=== PATIENT | female | born 1970 | race Caucasian/White ===

== ENCOUNTER → 2019-11-24 09:17 | Outpatient (CLI) | payer OTHER, SELFPAY ==
[2017-11-11 17:44] VITALS: BMI 21.7
[2019-11-24 17:43] LABS: Hemoglobin A1c 5.5 % (4.2-6.3)
== END ==
PROVIDERS: PCP Family Medicine; Referring Provider Family Medicine; Visit Provider Family Medicine
DX: R73.02 Impaired glucose tolerance (oral) (principal)
CPT/HCPCS: 36415; 83036

== ENCOUNTER → 2023-08-15 | Outpatient (CLI) | payer OTHER, SELFPAY ==
[2023-08-15 10:14] LABS: Absolute Lymphocyte Count 1.44 X10^3/uL (0.83-4.51); Absolute Neutrophil Count 2.5 X10^3/uL (2.0-7.7); Basophil# 0.02 X10^3/uL; Basophil% 0.5 % (0-1); Eosinophil# 0.06 X10^3/uL; Eosinophils% 1.4 % (0-5); Hematocrit 42.3 % (37-47); Lymphocyte # 1.44 X10^3/ul (0.83-4.51); Lymphocyte % 32.8 % (19-41); Mean Corp Hgb Conc 33.1 g/dL (32-36); Mean Corpuscular Hgb 29.4 pg (27.0-32.0); Mean Corpuscular Volume 88.9 fL (81-99); Mean Platelet Vol. 9.6 fl (6.2-12.0); Monocyte# 0.35 X10^3/uL; NRBC Flagged by Analyzer 0 % (0-5); Neutrophil # 2.51 X10^3/uL (2.7-7.7); Neutrophil % 57.1 % (47-70); Platelet Count 246 K/mm3 (150-450); RBC Distribution Width CV 11.8 % (11.6-14.6); RBC Distribution Width SD 38.1 fl (35.1-43.9); Red Blood Count 4.76 M/mm3 (4.2-5.4); White Blood Count 4.4 K/mm3 (4.4-11.0)
[2023-08-15 11:53] LABS: ALB/GLOB Ratio 1.1 RATIO (0.9-2.4); AST(SGOT) 13 U/L (15-37); Alanine Aminotransfer ALT/SGPT 16 U/L (13-56); Albumin, Serum 3.6 g/dL (3.2-5.0); Alkaline Phosphatase 41 U/L (45-117); Anion Gap 3 (5-15); BUN 15 mg/dL (7-18); BUN/Creat Ratio 16.6 RATIO (10-20); Calcium,Total 8.9 mg/dL (8.5-10.1); Chloride 108 mmol/L (98-107); EST Glomerular Filtration Rate 69 mL/min (>60); Est Glom Filt Rate - Afr Amer 84 mL/min (>60); Globulin 3.4 g/dL (2.2-4.2); Glucose 89 mg/dL (74-106); Potassium 3.7 mmol/L (3.5-5.1); Sodium Level 140 mmol/L (136-145); Thyroid Stim Hormone (TSH) 0.57 uIU/mL (0.358-3.74)
[2023-08-16 11:26] LABS: Cholesterol 195 mg/dL (200); High Density Lipoprotein 68 mg/dL; Triglycerides 111 mg/dL; Very Low Density Lipoprotein 22 mg/dL (5-40)
== END | disposition home or self-care (01) ==
LOC: MTLAB 09:08
PROVIDERS: PCP Family Medicine; Referring Provider Family Medicine; Visit Provider Family Medicine
DX: Z00.00 Encounter for general adult medical examination without abnormal findings (principal)
CPT/HCPCS: 36415; 80053; 80061; 84443; 85025

== ENCOUNTER → 2023-08-29 | Outpatient (CLI) | payer OTHER, SELFPAY ==
--- NOTE | 2023-08-29 07:54 | CT_ITS ---
EXAM: CT CHEST, LUNG CANCER SCREENING WITHOUT INTRAVENOUS CONTRAST CLINICAL INDICATION: SCREEN TECHNIQUE: Helically acquired images were obtained of the chest without intravenous contrast using low dose (LDCT) lung cancer screening protocol. This CT exam was performed using one or more of the following dose reduction techniques: automated exposure control, adjustment of the mA and/or kV according to patient size, and/or use of iterative reconstruction technique. COMPARISON: No relevant prior studies available. FINDINGS: LUNGS AND PLEURAL SPACES: Normal. No pleural effusion or thickening. No pneumothorax. No evidence of a lung mass or suspicious pulmonary nodule. HEART: Heart is normal size. No pericardial effusion. No coronary artery calcification. MEDIASTINUM: Normal. Esophagus is unremarkable. No hiatal hernia. No mediastinal or hilar lymphadenopathy. THYROID: Normal. No thyroid nodules or calcification. BONES/JOINTS: No suspicious lytic or blastic abnormality. VASCULATURE: No aortic aneurysm. LYMPH NODES: See above. CT/Low Dose CT Lung Screening IMPRESSION: No evidence of a lung mass or suspicious pulmonary nodule. Lung-RADS score: 1 - Negative. Recommend continued annual screening with a low-dose CT (LDCT) in 12 months. Electronically Signed: Edi Smith MD at 16:15 EST ,
--- OUTSIDE RECORDS SUMMARY | 2023-08-29 07:59 | XMS RPT_ITS | CCD ---
Author Name Unknown Address [facility] [address] [place] [address] Organization [facility] Care Team Providers Care Taper And Floater Name Role Phone Shar Alejandro MD Primary Care Provider [phone] SHAR ALEJANDRO Primary Care Unavailable TARSHA HUFFMAN Referring Unavailable SHAR ALEJANDRO Primary Care Unavailable TARSHA HUFFMAN Attending Unavailable Medications Completed/Discontinued Medications Medication Drug Class(es) Dates Sig (Normalized) Sig (Original) Cranberry preparation (2 sources) Non-Standardized Food Allergenic Extract, Non-Standardized Plant Allergenic Extract CRANBERRY ORAL Take by mouth as needed (urinary symptoms). 0 Active Problems Active Problems Problem Classification Problem Date Documented Date Episodic/Chronic Immunizations and screening for infectious disease (2 sources) Patient encounter status; Translations: [Encounter for screening for human papillomavirus (HPV)] 07-11-2023 Episodic Other screening for suspected conditions (not mental disorders or infectious disease) (2 sources) Cancer cervix screening status; Translations: [Encounter for screening for malignant neoplasm of cervix] Onset: 07-29-2023 07-11-2023 Episodic Past or Other Problems Problem Classification Problem Date Documented Da te Episodic/Chronic Residual codes; unclassified (2 sources) Tobacco user; Translations: [Tobacco use] Onset: 10-08-2012 10-08-2012 Episodic Residual codes; unclassified (2 sources) Family history of diabetes mellitus; Translations: [Family history of diabetes mellitus] Onset: 10-08-2012 10-08-2012 Episodic Results Test Name Value Interpretation Reference Range Facil ity Vital Signs Date Time Vital Sign Value Performing Clinician Jenny steven 07-11-2023 10:33-0500 Body height 166 cm Tarsha Huffman HIGH FREQUENCY MILL OPERATOR.CHAIN PULLER Work Phone: [facility] 07-11-2023 10:33-0500 Body weight 64.77 kg Tarsha Huffman APRN.TARA Work Phone: [facility] 07-11-2023 10:33-0500 Diastolic blood pressure 72 mm[Hg] Tarsha Huffman APRN.TARA Work Phone: [facility] 07-11-2023 10:33-0500 Systolic blood pressure 102 mm[Hg] Tarsha Huffman HIGH FREQUENCY MILL OPERATOR.TARA Work Phone: [facility] Encounters Encounter Date Encounter Type Care Provider Facility Start: 07-30-2023 Documentation procedure Mammog shelly Coordinator [facility] Start: 07-30-2023 Letter encounter Mammography Coordinator [facility] Department Start: 07-29-2023 End: 07-29-2023 ambulatory [facility] Facility:[facility] Start: 07-11-2023 End: 07-11-2023 ambulatory [facility] Facility:[facility] Start: 07-11-2023 End: 07-11-2023 Patient encounter procedure Tarsha Huffman APRN.TARA Work Phone: OB/Gynecology Procedures Date Procedure Procedure Detail Performing Clinician Start: 10-16-2012 Lipid 1996 panel - S leroy or Plasma Tarsha Huffman APRN.CNP Work Phone: Plan of Treatment Date Care Activity Detail Author Start: 07-11-2028 HPV Testing HPV Testing [facility] Start: 07-11-2028 Pap Testing Pap Testing [facility] Start: 07-04-2028 Urine microalbumin profile DTaP,Tdap,Td Vaccine (2 - Td or Tdap) [facility] Start: 07-29-2024 Mammography Mammogram Screening [facility] Start: 07-07-2023 HPV Testing HPV Testing [facility] Start: 07-07-2023 Pap Testing Pap Testing [facility] Start: 05-03-2023 Covid-19 Vaccine ( season) Covid-19 Vaccine ( season) [facility] Start: 05-03-2023 Influenza vaccination Influenza Vaccine (#1) [facility] Start: 09-02-2022 Depression Assessment Depression Assessment [facility] Start: 10-19-2021 Shingrix Vaccine (2 of 2) Shingrix Vaccine (2 of 2) [facility] Start: 07-15-2019 Mammography Mammogram Screening [facility] Start: 10-16-2017 Lipid 1996 panel - Serum or Plasma Lipid Screening [facility] Start: 02-01-2016 Cologuard (FIT-DNA) Cologuard (FIT-DNA) [facility] Start: 02-01-2016 Colonoscopy Colonoscopy [facility] Start: 02-01-2016 Colorectal Cancer Screening Colorectal Cancer Screening [facility] Start: 02-01-[address] Colonography [facility] Start: 02-01-2016 Diabetes Screening Diabetes Screening [facility] Start: 02-01-2016 Fecal Occult Blood Fecal Occult Blood [facility] Start: 02-01-2016 Sigmoidoscopy Sigmoidoscopy [facility] Start: 1989 Hepatitis C Screening Hepatitis C Screening [facility] Start: 1989 HIV Screening HIV Screening [facility] Start: 1971 Hepatitis B Vaccine (1 of 3 - 3-dose series) Hepatitis B Vaccine (1 of 3 - 3-dose series) [facility] End: 08-09-2024 MARY ANN SCREENING [facility] SCREENING Radiology Routine Encounter for screening mammogram for breast cancer 1 Occurrences starting 07/11/2023 until 08/09/2024 [facility] Work Phone: Immunizations Immunization Date Immunization Notes Care Provider Gerald baker 08-08-2022 influenza virus vacc ine, unspecified formulation Tarsha Huffman APRN.CNP Work Phone: [facility] Payers Date Payer Category Payer Private Health Insurance PRATIK RAMIREZ OAP [id number] 2021-Present [phone] [id number] [facility] [id number] Open Access [id number] 2021 Private Health Insurance [id number] Social History Date Type Detail Facility Start: 06-01-2021 Tobacco smoking stat NHIS Ex-smoker [facility] End: 06-02-2008 History of tobacco use Current smoker [facility] End: 06-02-2008 History of tobacco use Cigarette Smoker [facility] Start: 06-01-2021 End: 07-11-2023 Cigarettes smoked current (pack per day) - Reported 0.5 [facility] Start: 06-01-2021 Tobacco use and exposure Smoke less tobacco non-user [facility] Start: 07-11-2023 Alcohol intake Current drinke r of alcohol (finding) [facility] Start: 07-11-2023 Tobacco use panel [facility] National Score (1-10 0), lower number is lower risk 36 [facility] Start: 09-17-2008 Alcohol Comment social,BUT NOT WHILE [facility] Start: 1970 Sex Assigned At Female C [facility] Start: 07-11-2023 Gender identity Identifies as female gender (finding) [facility] Start: 07-11-2023 Sexual orientation Heterosexual (cosme steward) [facility] Note 07-30-2023 Letter - Coordinator, Mammography - 07/30/2023 11:00 AM EST Note Date & Type Note Facility 07-30-2023 Miscellaneous Notes Formattin g of this note might be different from the original. July 30, 2023 PID: [id number] Sherrie Rouse [address] [place] [address] Dear Ms. Rouse, We are pleased to inform you that the results of your recent breast imaging exam on 07/29/2023 are normal. Your mammogram demonstrates that you have dense breast tissue, which could hide abnormalities. Dense breast tissue, in and of itself, is a relatively common condition. Therefore, this information is not provided to cause undue concern; rather, it is to raise your awareness and promote discussion with your health care provider regarding the presence of dense breast tissue in addition to other risk factors. Early detection of cancer is very important. We also understand recommendations regarding breast cancer screening are controversial. Please discuss with your primary care provider which strategy is best for you and whether a mammogram is right for you. Your imaging studies and report will be kept on file at [facility] as part of your permanent medical record and are available for your continuing care. Thank you for allowing us to help in meeting your health care needs. Sincerely, Dr. Isaacs Interpreting Radiologist [facility] (Normal over 40) documented in this encounter [facility] Progress note 07-29-2023 Note Date & Type Note Facility 07-29-2023 Note HNO ID: [id number] Author: Ariadne Townsend Mammo Tech Service: ? Author Type: Efficiency Analyst Type: Progress Notes Filed: 07/29/2023 3:16 PM Note Text: Radiology Service Progress Note PATIENT NAME: Sherrie Rouse DATE OF SERVICE: July 29, 2023 TIME: 2:59 PM PATIENT IDENTITY VERIFICATION COMPLETED USING TWO (2) IDENTIFIERS: Name and Date of confirmed by patient verbally. FALL SCREENING: Has the patient had 2 falls in the last year or 1 fall with injury or currently using an Ambulatory Assistive Device (Walker, Cane, Wheelchair, Crutches, etc.)? No PATIENT GENDER DATA: Female. status: : No status: NO. PATIENT RELEVANT IMPLANT DATA REVIEWED: Not Applicable RADIOLOGY DEPARTMENT: Mammography PERIPHERAL IV DATA: Not applicable SIGNED BY: Donald Hatfield July 29, 2023 2:59 PM [facility] Progress note 07-11-2023 Note Date & Type Note Facility 07-11-2023 Note HNO ID: [id number] Author: Tarsha Huffman APRN.CHAIN PULLER Service: ? Author Type: Nurse Practitioner Type: Progress Notes Filed: 07/11/2023 11:31 AM Note Text: Direct Marketing Manager offered: Patient declines. Sherrie is a 53 year old who presents for an annual gynecologic exam without complaints. Postmenopausal: irregular cycle w/ 3-4 days of flow LMP 06/2023 HRT use: No. Last Pap: 07/15/2018 normal HPV: 07/09/2018 negative History of abnormal pap: No Last mammogram: 2018 normal History of abnormal mammogram: No Sexually active: Yes Pain with intercourse: No Postcoital bleeding: No Hot flashes: some Night sweats: Yes Vaginal dryness: No OB History T4 L4 SAB0 IAB1 Ectopic0 Multiple0 Live Births5 [employer] History LMP: 05/25/2021, Having periods Age at Menarche: Age at First : Age at Menopause: [employer] History Comments: Sexual Activity: Yes; Male Contraception: Tubal Ligation PAST MEDICAL HISTORY Diagnosis Date NEGATIVE MEDICAL HISTORY PAST SURGICAL HISTORY Procedure Laterality Date DELIVERY ONLY 07/18/07,05/03/2009 for previa LIGATE FALLOPIAN TUBE 1994 Tubal ligation LIGATE FALLOPIAN TUBE 2008 Tubal ligation PAST SURGICAL HISTORY OF 09/08 TUBAL REVERSAL PAST SURGICAL HISTORY OF Left 03/2015 shoulder surgery FAMILY HISTORY Problem Relation Age of Onset other (LIVER DISEASE) Mother Hypertension Father Diabetes Father Heart Father SOCIAL HISTORY Social History Tobacco Use Smoking status: Former Packs/day: 0.50 Years: 14.00 Additional pack years: 0.00 Total pack years: 7.00 Types: Cigarettes Quit date: 06/02/2008 Years since quittin.1 Smokeless tobacco: Never Vaping Use Vaping Use: Former Substance Use Topics Alcohol use: Yes Comment: social,BUT NOT WHILE Drug use: No REVIEW OF SYSTEMS Abdomen: No abdominal pain, nausea, vomiting, diarrhea, or constipation. No bloating, early satiety, indigestion, or increased flatulence. Bladder: No dysuria, gross hematuria, urinary frequency, urinary urgency, or incontinence Breast: No breast lumps, nipple d/c, overlying skin changes, redness or skin retraction Allergies and current medication updated:Yes EXAM: LMP 05/25/2021 GENERAL: pleasant, female in no apparent distress HEENT: Normocephalic, atraumatic, mucus membranes moist, and no lesions NECK: Supple, full range of motion, no adenopathy, and thyroid normal DERMATOLOGY: Normal, without lesions, non-icteric, and non-hirsute BREAST: soft, non-tender, symmetric, no dominant mass, normal nipple-areolar complex, no lymphadenopathy, and no nipple discharge CHEST: Normal inspiratory effort ABDOMEN: soft, non-tender, and no masses PELVIC: external genitalia normal, normal Bartholin's glands, urethra, [place]'s glands, no vulvar lesions, no cervical lesions, physiologic discharge present, normal appearing perineal body and perianal region BIMANUAL: uterus normal size, shape and consistency, no adnexal masses, and non-tender RECTOVAGINAL: deferred. NEURO: alert and oriented x3,exam grossly non-focal EXTREMITIES: normal ASSESSMENT/PLAN: 1) Health maintenance: Pap done with HPV. Mammogram ordered Nutrition, exercise and routine health maintenance exams reviewed. Calcium/Vitamin D supplementation information provided. 2) Follow up one year or sooner as needed Tarsha Huffman APRN.[facility] History of Present illness Narrative 11-09-2023 NayeliTarsha mossCOLEEN.CHAIN PULLER - 07/11/2023 10:26 AM EST Note Date & Type Note Facility 07-11-2023 History of Presen t illness Narrative Direct Marketing Manager offered: Patient declines. Sherrie is a 53 year old who presents for an annual gynecologic exam without complaints. Postmenopausal: irregular cycle w/ 3-4 days of flow LMP 06/2023 HRT use: No. Last Pap: 07/15/2018 normal HPV: 07/09/2018 negative History of abnormal pap: No Last mammogram: 2017 normal History of abnormal mammogram: No Sexually active: Yes Pain with intercourse: No Postcoital bleeding: No Hot flashes: some Night sweats: Yes Vaginal dryness: No OB History T4 L4 SAB0 IAB1 Ectopic0 Multiple0 Live Births5 [employer] History LMP: 05/25/2021, Having periods Age at Menarche: Age at First : Age at Menopause: [employer] History Comments: Sexual Activity: Yes; Male Contraception: Tubal Ligation PAST MEDICAL HISTORY Diagnosis Date NEGATIVE MEDICAL HISTORY PAST SURGICAL HISTORY Procedure Laterality Date DELIVERY ONLY 07/18/07,05/03/2009 for previa LIGATE FALLOPIAN TUBE 1994 Tubal ligation LIGATE FALLOPIAN TUBE 2008 Tubal ligation PAST SURGICAL HISTORY OF 09/08 TUBAL REVERSAL PAST SURGICAL HISTORY OF Left 03/2015 shoulder surgery FAMILY HISTORY Problem Relation Age of Onset other (LIVER DISEASE) Mother Hypertension Father Diabetes Father Heart Father SOCIAL HISTORY Social History Tobacco Use Smoking status: Former Packs/day: 0.50 Years: 14.00 Additional pack years: 0.00 Total pack years: 7.00 Types: Cigarettes Quit date: 06/02/2008 Years since quittin.1 Smokeless tobacco: Never Vaping Use Vaping Use: Former Substance Use Topics Alcohol use: Yes Comment: social,BUT NOT WHILE Drug use: No REVIEW OF SYSTEMS Abdomen: No abdominal pain, nausea, vomiting, diarrhea, or constipation. No bloating, early satiety, indigestion, or increased flatulence. Bladder: No dysuria, gross hematuria, urinary frequency, urinary urgency, or incontinence Breast: No breast lumps, nipple d/c, overlying skin changes, redness or skin retraction Allergies and current medication updated:Yes EXAM: LMP 05/25/2021 GENERAL: pleasant, female in no apparent distress HEENT: Normocephalic, atraumatic, mucus membranes moist, and no lesions NECK: Supple, full range of motion, no adenopathy, and thyroid normal DERMATOLOGY: Normal, without lesions, non-icteric, and non-hirsute BREAST: soft, non-tender, symmetric, no dominant mass, normal nipple-areolar complex, no lymphadenopathy, and no nipple discharge CHEST: Normal inspiratory effort ABDOMEN: soft, non-tender, and no masses PELVIC: external genitalia normal, normal Bartholin's glands, urethra, [place]'s glands, no vulvar lesions, no cervical lesions, physiologic discharge present, normal appearing perineal body and perianal region BIMANUAL: uterus normal size, shape and consistency, no adnexal masses, and non-tender RECTOVAGINAL: deferred. NEURO: alert and oriented x3,exam grossly non-focal EXTREMITIES: normal ASSESSMENT/PLAN: 1) Health maintenance: Pap done with HPV. Mammogram ordered Nutrition, exercise and routine health maintenance exams reviewed. Calcium/Vitamin D supplementation information provided. 2) Follow up one year or sooner as needed Tarsha Huffman APRN.CNP documented in this encounter [facility] History of Past illness Narrative 09-30-2008 Note Date & Type Note Facility documented as of this encounter (statuses as of 07/11/2023) [facility] History of Past illness Narrative 09-30-2008 Note Date & Type Note Facility documented as of this encounter (statuses as of 08/01/2023) [facility] Evaluation note Note Date & Type Note Facility documented in this encounter [facility] Reason for referral (narrative) Diagnostic Procedure Only (Routine) - Authorized Note Date & Type Note Facility Referral ID Status Reason Start Date Expiration Date Visits Requested Visits Authorized [id number] Authorized Auto-Generat ed Referral 07/11/2023 08/09/2024 1 1 [facility] Summary Purpose Family History No Family History Records Found Advance Directives No Advanced Directives Records Found Additional Source Comments Source Comments (unrecognize d section and content) In the event this informatio n is protected by the Federal Confidentiality of Alcohol and Drug Abuse Patient Records regulations: The Federal rules restrict any use of the information to criminally investigate or prosecute any alcohol or drug abuse patient.[facility] the event this information is protected by the Federal Confidentiality of Alcohol and Drug Abuse Patient Records regulations: The Federal rules restrict any use of the information to criminally investigate or prosecute any alcohol or drug abuse patient.[facility] Reason for Visit (unrecogniz ed section and content) Care Teams (unrecognized sec tion and content) Taper And Floater Relationship Specialty Start Date End Date Shar Alejandro MD PCP - General Family Medicine 10/07/12 INFORMATION SOURCE (unrecogn ized section and content) FOR RECORDS PERTAINING TO PATIENTS WHO ARE OR HAVE BEEN ENROLLED IN A CHEMICAL DEPENDENCY/SUBSTANCEABUSE PROGRAM, SOME INFORMATION MAY BE OMITTED. This clinical summary was aggregated from multiple sources. Caution should be exercised in using it in the provision of clinical care. This summary normalizes information from multiple sources, and as a consequence, information in this document may materially change the coding, format and clinical context of patient data. In addition, data may be omitted in some cases. CLINICAL DECISIONS SHOULD BE BASED ON THE PRIMARY CLINICAL RECORDS. [employer] [facility]. provides no warranty or guarantee of the accuracy or completeness of information in this document.
== END | disposition home or self-care (01) ==
LOC: CT 07:54
PROVIDERS: PCP Family Medicine; Referring Provider Family Medicine; Visit Provider Family Medicine
DX: Z87.891 Personal history of nicotine dependence (principal)
CPT/HCPCS: 71271

== ENCOUNTER → 2024-07-05 | Outpatient (CLI) | payer OTHER, SELFPAY | END | disposition home or self-care (01) | PROVIDERS: PCP Family Medicine; Referring Provider Nurse Practitioner Family; Visit Provider Nurse Practitioner Family | DX: N39.0 Urinary tract infection, site not specified (principal) | CPT/HCPCS: 87086; 87088; 87186 ==

== ENCOUNTER → 2024-08-05 | Outpatient (CLI) | payer OTHER, SELFPAY | END | disposition home or self-care (01) | LOC: LABSPEC 10:08 | PROVIDERS: PCP Family Medicine; Referring Provider Nurse Practitioner Family; Visit Provider Nurse Practitioner Family | DX: N39.0 Urinary tract infection, site not specified (principal) | CPT/HCPCS: 82043; 87086; 87088; 87186 ==

== ENCOUNTER → 2024-08-05 | Outpatient (CLI) | payer OTHER, SELFPAY | END | disposition home or self-care (01) | LOC: LABSPEC 08:23 | PROVIDERS: PCP Family Medicine; Visit Provider Family Medicine | DX: Z00.00 Encounter for general adult medical examination without abnormal findings (principal) ==

== ENCOUNTER → 2024-08-18 | Outpatient (CLI) | payer OTHER, SELFPAY ==
[2024-08-18 13:37] LABS: Anion Gap 4 (5-15); BUN 16 mg/dL (7-18); BUN/Creat Ratio 22.8 RATIO (10-20); Chloride 107 mmol/L (98-107); Cholesterol 205 mg/dL (200); EST Glomerular Filtration Rate 93 mL/min (>60); Est Glom Filt Rate - Afr Amer 112 mL/min (>60); Glucose 102 mg/dL (74-106); High Density Lipoprotein 74 mg/dL; Potassium 4.3 mmol/L (3.5-5.1); Sodium Level 139 mmol/L (136-145); Triglycerides 76 mg/dL; Very Low Density Lipoprotein 15 mg/dL (5-40)
[2024-08-18 14:26] LABS: Hemoglobin A1c 5.1 % (3.8-5.6)
== END | disposition home or self-care (01) ==
LOC: MFPLAB 10:04
PROVIDERS: PCP Family Medicine; Referring Provider Family Medicine; Visit Provider Family Medicine
DX: Z00.00 Encounter for general adult medical examination without abnormal findings (principal)
CPT/HCPCS: 36415; 80048; 80061; 83036

== ENCOUNTER → 2024-09-09 | Outpatient (CLI) | payer BC, SELFPAY ==
--- NOTE | 2024-09-09 12:31 | US_ITS ---
STUDY: RENAL ULTRASOUND - COMPLETE REASON FOR EXAM: Female, 54 years old. UTI TECHNIQUE: Ultrasound evaluation of the kidneys was performed with real-time and static carpoi-scale imaging. COMPARISON: None. FINDINGS: RIGHT KIDNEY: Normal location of the right kidney, which is normal in size. The right kidney measures 9.6 cm x 5.1 cm x 3.8 cm. There is a normal cortex of the right kidney. The renal cortex measures 1.0 cm. There is no right renal mass or cyst. There are no right renal calculi. There is no right hydronephrosis. DISTAL RIGHT URETER: There is non-visualization of the distal right ureter. There is no demonstrated right ureterovesical junction calculus. There is a visualized right ureteral jet. LEFT KIDNEY: Normal location of the left kidney, which is normal in size. The left kidney measures 9.9 cm x 4.2 cm x 5.4 cm. There is a normal cortex of the left kidney. The renal cortex measures 1.7 cm. There is no left renal mass or cyst. There are no left renal calculi. There is no left hydronephrosis. DISTAL LEFT URETER: There is non-visualization of the distal left ureter. There is no demonstrated left ureterovesical junction calculus. There is a visualized left ureteral jet. BLADDER: The distended urinary bladder has a volume of 427 ml. There is a normal wall thickness of the distended urinary bladder. There is no demonstrated mass within the urinary bladder. There are no demonstrated bladder calculi. US/Kidney and Bladder IMPRESSION: Normal ultrasound of the kidneys and urinary bladder. Electronically Signed: Evaristo Jackson MD at 9:00 EST ,
== END | disposition home or self-care (01) ==
LOC: US 12:28
PROVIDERS: PCP Family Medicine; Referring Provider Family Medicine; Visit Provider Urology
DX: N39.0 Urinary tract infection, site not specified (principal)
CPT/HCPCS: 76770

== ENCOUNTER → 2025-08-25 | Outpatient (CLI) | payer BC, SELFPAY ==
--- OUTSIDE RECORDS SUMMARY | 2025-08-25 09:32 | XMS RPT_ITS | CCD ---
Author Organization [facility] ion Partnership [facility] Care Team Providers Care Indoor Plant Technician Name Role Phone Shar Tovar MD Primary Care Provider Shar Tovar MD Primary Care Provider Titus Bass MD Unavailable Erin Mota Attending Unavailable Titus Bass Referring Unavailable Titus Bass Primary Care Unavailable Valeria Ch Attending Unavailable Titus Bass Primary Care Unavailable Titus Bass Referring Unavailable Anne-Marie Stanley Attending Unavailable Anne-Marie Stanley S Referring Unavailable Titus Bass Primary Care Unavailable Kristofer LEAD ADVISOR, Teetee Attending Unavailable Kristofer LEAD ADVISOR, Teetee Referring Unavailable Titus Bass Primary Care Unavailable Titus Bass Primary Care Unavailable Titus Bass Attending Unavailable Valeria Ch Attending Unavailable Valeria Ch Referring Unavailable Titus Bass Primary Care Unavailable SHAR TOVAR Primary Care Unavailable TARSHA TYLER Attending Unavailable TARSHA TYLER Referring Unavailable SHAR TOVAR Primary Care Unavailable TARSHA TYLER Attending Unavailable TARSHA TYLER Referring Unavailable SHAR TOVAR Primary Care Unavailable TARSHA TYLER Attending Unavailable SHAR TOVAR Primary Care Unavailable Medications Current Medications Medication Drug Class(es) Dates Sig (Normalized) Sig (Original) estradiol 1 mg oral tablet (10 sources) Estrogen Start: 07-13-2024 End: 01-12-2025 take 1 tablet by mouth once daily estradiol (ESTRACE) 1 mg tablet Take 1 tablet by mouth once daily. 90 tablet 2 01/12/2025 Active estradiol (ESTRI NG) 2 mg (7.5 mcg /24 hour) vaginal ring Use 2 mg vaginally every 3 months. follow package directions Active flibanserin 100 mg oral tablet (1 source) Start: 04-30-2025 take 1 tablet by mouth once daily flibanserin (ADDYI) 100 mg tab Indications: Sexual dysfunction Take 1 tablet by mouth once daily. 30 tablet 3 04/30/2025 Active ibuprofen 100 mg oral tablet (1 source) Nonsteroidal Anti-inflammatory Drug Start: 11-11-2017 ibuprofen 100 mg tablet Active PO November 10, 2017 11:00pm nitrofurantoin, macrocrystals 25 mg / nitrofurantoin, monohydrate 75 mg oral capsule (3 sources) Nitrofuran Antibacterial Start: 07-15-2024 End: 07-22-2024 take 1 capsule by mouth twice daily nitrofurantoin monohydrate and macrocrystal (MACROBID) 100 mg capsule Take 1 capsule by mouth two times a day for 7 days. 14 capsule 07/15/2024 07/22/2024 Active Start: 06-26-2024 End: 07-13-2024 take 1 capsule by mouth every twelve hours nitrofurantoin monohydrate and macrocrystal (MACROBID) 100 mg capsule Take 1 capsule by mouth every 12 hours. 06/26/2024 07/13/2024 Discontinued progesterone 100 mg oral capsule (8 sources) Progesterone Start: 07-13-2024 End: 07-13-2025 take 1 capsule by mouth once daily at bedtime progesterone micronized (PROMETRIUM) 100 mg capsule Take 1 capsule by mouth daily at bedtime. 90 capsule 3 07/13/2024 07/13/2025 Active Completed/Discontinued Medications Medication Drug Class(es) Dates Sig (Normalized) Sig (Original) Cranberry preparation (3 sources) Non-Standardized Food Allergenic Extract, Non-Standardized Plant Allergenic Extract End: 07-13-2024 CRANBERRY ORAL Take by mouth as needed (urinary symptoms). 07/13/2024 Discontinued CRANBERRY ORAL T bryson by mouth as needed (urinary symptoms). 0 Active Comment on above: Take by mouth as nee ded (urinary symptoms). oseltamivir 75 mg oral capsule (1 source) Neuraminidase Inhibitor Start: End: take 1 capsule by mouth every twelve hours Oseltamivir (Tamiflu) 75 mg capsule Discontinued 75 MG PO Q12H 10 5 November 10, 2017 11:00pm November 15, 2017 11:11pm sulfamethoxazole 800 mg / trimethoprim 160 mg oral tablet (1 source) Dihydrofolate Reductase Inhibitor Antibacterial, Sulfonamide Antimicrobial Start: End: take 1 tablet by mouth every twelve hours sulfamethoxazole-tr imethoprim (BACTRIM DS) 800-160 mg per tablet Take 1 tablet by mouth every 12 hours. 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] Onset: 08-19-2024 08-19-2024 Chronic Immunizations and screening for infectious disease (3 sources) Patient encounter status; Translations: [Encounter for screening for human papillomavirus (HPV)] 07-11-2023 Episodic Influenza (1 source) Influenza; Translations: [Influenza due to unidentified influenza virus with other respiratory manifestations] 11-11-2017 Episodic Menopausal disorders (2 sources) Menopausal symptom; Translations: [Menopausal and female climacteric states] 07-13-2024 Chronic Miscellaneous mental health disorders (2 sources) Abnormal sexual function; Translations: [Sexual dysfunction, unspecified] 04-30-2025 Episodic Other diseases of bladder and urethra (1 source) Bladder irritability; Translations: [Other specified disorders of bladder] 07-13-2024 Chronic Other female genital disorders (2 sources) Abnormal uterine bleeding; Translations: [Abnormal uterine and vaginal bleeding, unspecified] 08-17-2024 Chronic Other female genital disorders (1 source) Abnormal uterine and vaginal bleeding, unspecified; Translations: [Abnormal uterine bleeding (AUB)] Onset: 08-18-2024 Chronic Other screening for suspected conditions (not mental disorders or infectious disease) (1 source) Cancer cervix screening status; Translations: [Encounter for screening for malignant neoplasm of cervix] 07-11-2023 Episodic Urinary tract infections (1 source) Urinary tract infection, site not specified; Translations: [Urinary tract infection, site not specified] Onset: 10-01-2024 Episodic Past or Other Problems Problem Classification Problem Date Documented Da te Episodic/Chronic Benign neoplasm of uterus (4 sources) Intramural leiomyoma of uterus; Translations: [Intramural leiomyoma of uterus] Onset: 08-19-2024 08-19-2024 Episodic Genitourinary symptoms and ill-defined conditions (1 source) Dysuria; Translations: [Dysuria] Onset: 07-04-2024 Episodic Other complications of (8 sources) High risk ; Translations: [Supervision of high risk , unspecified, unspecified trimester] Onset: 11-20-2006 Resolved: 07-21-2007 03-12-2024 Episodic Other complications of (16 sources) Multigravida of advanced maternal age; Translations: [Supervision of elderly multigravida, unspecified trimester] Onset: 11-20-2006 Resolved: 05-17-2009 03-12-2024 Episodic Other and delivery including normal (16 sources) Normal ; Translations: [Encounter for supervision of other normal , unspecified trimester] Onset: 11-14-2006 Resolved: 05-17-2009 03-12-2024 Episodic Residual codes; unclassified (10 sources) Tobacco user; Translations: [Tobacco use] Onset: 10-08-2012 Resolved: 07-13-2024 10-08-2012 Episodic Residual codes; unclassified (10 sources) Family history of diabetes mellitus; Translations: [Family history of diabetes mellitus] Onset: 10-08-2012 10-08-2012 Episodic Unclassified (1 source) labrum tear 04-01-2022 Results Test Name Value Interpretation Reference Range Facility [facility] 05-14-2025 [facility] Telephone (OBGYWM) SHERRIE SAXENA ([id number]) 1970 F Date Time Provider Department 05/14/25 TARSHA TYLER During your visit today, we recorded the following information about you: Scarlet Berumen MA 05/14/2025 10:13 AM Signed I have been working with [employer] to get Addyi 100 mg tablets approved. 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 Please Advise. LISA Huitron Renee, APRN.CNP 05/14/2025 12:15 PM Signed Yes. Use HSDD. Thanks, Tarsha Tyler APRN.Scarlet Grande MA 05/18/2025 7:55 AM Signed Are you able to into the last office note and change the diagnosis? LISA Huitron Renee, APRN.CNP 05/18/2025 9:03 AM Signed Added to the chart. IRMA Alvarenga Reanna, MA 05/19/2025 4:05 PM Signed Called insurance with the new diagnosis. Medication was approved from 05/19/2025 through 05/19/2025. Will send a [employer] message to the patient. LISA Huitron Annalee, LPN 05/21/2025 3:53 PM Signed Patient picked up medication Allergies As of Date: 05/14/2025 (No Known Allergies) Date Reviewed: 07/13/2024 Reviewed by: Tarsha Tyler APRN.CNP - Fully Assessed Reason for Visit: Medication Problem [65] Prescriptions as of 05/21/2025 - estradiol (ESTRING) 2 mg (7.5 mcg /24 hour) vaginal ring Use 2 mg vaginally every 3 months. follow package directions - flibanserin (ADDYI) 100 mg tab Take 1 tablet by mouth once daily. - estradiol (ESTRACE) 1 mg tablet Take 1 tablet by mouth once daily. - progesterone micronized (PROMETRIUM) 100 mg capsule Take 1 capsule by mouth daily at bedtime. Meds Comments as of 04/27/2009: All medications reviewed today/September 17, 2008 Dominga Rudd Rn All medications have been reviewed today/August 27, 2007 Ladan Bach Lpn All medications have been reviewed today/July 30, 2007 Ladan Bach Lpn All medications have been reviewed today/July 18, 2007 Ladan A Mikala Soap Mixer Problem List As Of Date 05/14/2025 Noted Resolved SUPERVIS OTHER NORMAL PREG [Z34.80] 11/14/2006 11/20/2006 SUPRV HIGH-RISK PREG NOS [O09.90] 11/20/2006 07/21/2007 AMA MULTIGRAVID-ANTEPARTUM [O09.529] 11/20/2006 07/21/2007 Supervision of Other Normal [Z34.80] 09/30/2008 05/17/2009 Previous Delivery, Antepartum Conditio*09/30/2008 05/17/2009 Elderly Multigravida with Antepartum Condition *09/30/2008 05/17/2009 Tobacco abuse [Z72.0] 10/08/2012 07/13/2024 Family history of diabetes mellitus [Z83.3] 10/08/2012 Intramural uterine fibroid [D25.1] 08/19/2024 Arcuate uterus [Q51.810] 08/19/2024 Encounter Status:Closed by SCARLET BERUMEN on 05/19/25 Normal [facility] Kidney and Bladderon [address] [facility] Imaging Services [address] [place] [address] [id number] Kidney and Bladder MR#: [id number] Acct: [id number] Name: SHERRIE SAXENA Rep #: [id number] : 1970 F 54 From: Evaristo león MD PCP: Dr. Titus Bass MD Status: [facility] Study: Kidney and Bladder Date of Exam: 09/09/24 Exam# [id number] Ordering Dr: Erin Mota MD [id number] STUDY: RENAL ULTRASOUND - COMPLETE REASON FOR EXAM: Female, 54 years old. UTI TECHNIQUE: Ultrasound evaluation of the kidneys was performed with real-time and static carpio-scale imaging. COMPARISON: None. FINDINGS: RIGHT KIDNEY: Normal location of the right kidney, which is normal in size. The right kidney measures 9.6 cm x 5.1 cm x 3.8 cm. There is a normal cortex of the right kidney. The renal cortex measures 1.0 cm. There is no right renal mass or cyst. There are no right renal calculi. There is no right hydronephrosis. DISTAL RIGHT URETER: There is non-visualization of the distal right ureter. There is no demonstrated right ureterovesical junction calculus. There is a visualized right ureteral jet. LEFT KIDNEY: Normal location of the left kidney, which is normal in size. The left kidney measures 9.9 cm x 4.2 cm x 5.4 cm. There is a normal cortex of the left kidney. The renal cortex measures 1.7 cm. There is no left renal mass or cyst. There are no left renal calculi. There is no left hydronephrosis. DISTAL LEFT URETER: There is non-visualization of the distal left ureter. There is no demonstrated left ureterovesical junction calculus. There is a visualized left ureteral jet. BLADDER: The distended urinary bladder has a volume of 427 ml. There is a normal wall thickness of the distended urinary bladder. There is no demonstrated mass within the urinary bladder. There are no demonstrated bladder calculi. US/Kidney and Bladder IMPRESSION: Normal ultrasound of the kidneys and urinary bladder. Electronically Signed: Evaristo Jackson MD at 9:00 EST , CC: Dr. Erin Mota MD; Dr. Titus Bass MD Colorer Machine: Signed Normal [facility] US Pelvison 08-19-2024 Indication Abnormal uterine bleeding Impression The contour of the uterus and the endometrial cavity were evaluated with 3-D imaging. Findings are suggestive of arcuate uterus. The uterus is anteverted and measures 76 mm x 35 mm x 54 mm. The myometrium is heterogenous. The endometrial thickness is 3.8 mm. There is a left lateral wall intramural fibroid that measures 16 mm x 12 mm x 14 mm. The right ovary measures 20 mm x 20 mm x 11 mm. The left ovary measures 21 mm x 19 mm x 11 mm. There is no free fluid visualized. Technique: Three dimensional imaging was created on a dedicated stand-alone 3D workstation with images created and archived, and supervised and reviewed by the interpreting physician utilizing images from a US Scan performed on 08/18/24. Recommendations Arcuate uterus. Fibroid uterus. Clinical correlation is recommended. History Medical History Surgery: section x 2 Menstrual History LMP on 03/02/2024. Cycle: irregular cycle, LMP date uncertain Method Transabdominal, transvaginal, 3D ultrasound examination, Color Doppler examination. View: Adequate visualization Uterus Uterus: Visualized Uterus position: anteverted Description of uterine malformations: arcuate Myometrium: heterogeneous Endometrium: normal Cervix details: cystic lesions identified suggesting superficial Nabothian cysts Uterus length 76 mm Uterus width 54 mm Uterus height 35 mm Uterus Vol 74.2 cm Endometrial thickness, total 3.8 mm Fibroids: Fibroids identified Uterine fibroid D1 16 mm Uterine fibroid D2 12 mm Uterine fibroid D3 14 mm Uterine fibroid mean 14.0 mm Uterine fibroid vol 1.397 cm Uterine fibroids findings: Left lateral wall. intramural Right Ovary Rt ovary: Visualized Rt ovary morphology: postmenopausal atrophic Rt ovary D1 20 mm Rt ovary D2 20 mm Rt ovary D3 11 mm Rt ovary Vol 2.3 cm Rt ovarian cyst(s): No cysts identified Left Ovary Lt ovary: Visualized Lt ovary morphology: postmenopausal atrophic Lt ovary D1 21 mm Lt ovary D2 19 mm Lt ovary D3 11 mm Lt ovary Vol 2.4 cm Lt ovarian cyst(s): No cysts identified Cul de Sac Visualized. no free fluid visualized Procedure To characterize the arcuate uterus, three dimensional imaging was created on a dedicated stand-alone 3D workstation with images created and archived, and supervised and reviewed by the interpreting physician utilizing images from an ultrasound scan performed today. Performed By: Jayshree Flynn RDMS Read By: Yoli Bains M.D. MATERNAL MEDICINE [facility] Basic Metabolic Profile (BMP )on 08-18-2024 BUN/CRE 22.8 RATIO High 10-20 [facility] Comment on above: Performed By: #### L 500.2500, L500.4100, L501.9985 #### [facility] [address] [place], [address] CA,Total 9.0 mg/dL Normal 8.5-10.1 [facility] Comment on above: Performed By: #### L 500.2500, L500.4100, L501.9985 #### [facility] [address] [place], [address] Chloride [Moles/Vol] 107 mmol/L Normal 98-107 [facility] Comment on above: Performed By: #### L 500.2500, L500.4100, L501.9985 #### [facility] [address] [place], [address] CO2 [Moles/Vol] 28.0 mmol/L Normal 21.0-32.0 [facility] Comment on above: Performed By: #### L 500.2500, L500.4100, L501.9985 #### [facility] [address] [place], [address] Creatinine [Mass/Vol] 0.70 mg/dL Normal 0.55-1.02 [facility] Comment on above: Result Comment: The validity of the calculated GFR GFRAA in patients over 70 years has not been determined. Clinical correlation is essential. Performed By: #### L 500.2500, L500.4100, L501.9985 #### [facility] [address] [place], [address] EST GFR - AA 112 mL/min Normal >60 [facility] Comment on above: Result Comment: Afri can Ethiopian GFR Calc Performed By: #### L 500.2500, L500.4100, L501.9985 #### [facility] [address] [place], [address] GAP 4 Low 5-15 [facility] Comment on above: Performed By: #### L 500.2500, L500.4100, L501.9985 #### [facility] [address] [place], [address] GFR/1.73 sq M.predicted among non-blacks MDRD (S/P/Bld) [Vol rate/Area] 93 mL/min/{1.73_m2} Normal >60 [facility] Comment on above: Result Comment: Non- GFR Calc Performed By: #### L 500.2500, L500.4100, L501.9985 #### [facility] [address] [place], [address] Glucose [Mass/Vol] 102 mg/dL Normal 74-106 [facility] Comment on above: Result Comment: Fast ing Glucose result from 100 to 125 mg/dL suggests IMPAIRED HOMEOSTASIS per A.D.A. criteria. Performed By: #### L 500.2500, L500.4100, L501.9985 #### [facility] [address] [place], [address] Potassium [Moles/Vol] 4.3 mmol/L Normal 3.5-5.1 [facility] Comment on above: Performed By: #### L 500.2500, L500.4100, L501.9985 #### [facility] [address] [place], [address] Sodium [Moles/Vol] 139 mmol/L Normal 136-145 [facility] Comment on above: Performed By: #### L 500.2500, L500.4100, L501.9985 #### [facility] [address] [place], [address] Urea nitrogen [Mass/Vol] 16 mg/dL Normal 7-18 [facility] Comment on above: Performed By: #### L 500.2500, L500.4100, L501.9985 #### [facility] [address] [place], [address] Hemoglobin A1con 08-18-2024 HbA1c (Bld) [Mass fraction] 5.1 % Normal 3.8-5.6 [facility] Comment on above: Result Comment: Norm al < 5.7 % Prediabetic 5.7 - 6.4 % Diabetic >or= 6.5 % Please note range changes. Performed By: #### L 500.2500, L500.4100, L501.9985 #### [facility] [address] [place], [address] Lipid Profileon 08-18-2024 Cholesterol [Mass/Vol] 205 mg/dL High 200 [facility] Comment on above: Result Comment: <200 mg/dL Desirable 200-240 mg/dL Borderline >240 mg/dL High Risk Performed By: #### L 500.2500, L500.4100, L501.9985 #### [facility] [address] [place], [address] Cholesterol in HDL [Mass/Vol] 74 mg/dL Normal [facility] Comment on above: Result Comment: The drugs N-Acetylcysteine and Metamizole may falsely depress this assay. Reference Range HDL <40 mg/dL Low HDL Cholesterol HDL >or= 60 mg/dL High HDL Cholesterol Performed By: #### L 500.2500, L500.4100, L501.9985 #### [facility] [address] [place], [address] Cholesterol in LDL [Mass/Vol] 116 mg/dL Normal 0-130 [facility] Comment on above: Performed By: #### L 500.2500, L500.4100, L501.9985 #### [facility] [address] [place], [address] Cholesterol in VLDL [Mass/Vol] 15 mg/dL Normal 5-40 [facility] Comment on above: Performed By: #### L 500.2500, L500.4100, L501.9985 #### [facility] [address] [place], [address] Triglyceride [Mass/Vol] 76 mg/dL Normal [facility] Comment on above: Result Comment: The drugs N-Acetylcysteine and Metamizole may falsely depress this assay. Serum Triglycerides Reference Interval Normal <150 mg/dL Borderline high 150 - 199 mg/dL High 200 - 499 mg/dL Very High > or = 500 mg/dL Performed By: #### L 500.2500, L500.4100, L501.9985 #### [facility] [address] [place], [address] US Pelvison 08-18-2024 Radiology Study observation (narrative) [facility] Komal 08-17-2024 CNPN Telephone (OBGYWM) SHERRIE SAXENA ([id number]) 1970 F Date Time Provider Department 08/17/24 TARSHA TYLER OBNICK During your visit today, we recorded the following information about you: Tarsha Tyler APRN.TARA 08/17/2024 1:06 PM Signed Please call to assist with scheduling US. Thanks, Tarsha Tyler APRN.TARA KhannaMaciel, Wanda 08/17/2024 3:14 PM Signed Called patient [facility] to call back to schedule Pelvic US Allergies As of Date: 08/17/2024 (No Known Allergies) Date Reviewed: 07/13/2024 Reviewed by: Tarsha Tyler APRN.CLIMATE CHANGE RISK ASSESSOR - Fully Assessed Reason for Visit: Appointment [186] Prescriptions as of 08/18/2024 - estradiol (ESTRACE) 1 mg tablet Take 1 tablet by mouth once daily. - progesterone micronized (PROMETRIUM) 100 mg capsule Take 1 capsule by mouth daily at bedtime. Meds Comments as of 04/27/2009: All medications reviewed today/September 17, 2008 Dominga Rudd Rn All medications have been reviewed today/August 27, 2007 Ladan Bach Lpn All medications have been reviewed today/July 30, 2007 Ladan Bach Lpn All medications have been reviewed today/July 18, 2007 Ladan Bach Soap Mixer Problem List As Of Date 08/17/2024 Noted Resolved SUPERVIS OTHER NORMAL PREG [Z34.80] 11/14/2006 11/20/2006 SUPRV HIGH-RISK PREG NOS [O09.90] 11/20/2006 07/21/2007 AMA MULTIGRAVID-ANTEPARTUM [O09.529] 11/20/2006 07/21/2007 Supervision of Other Normal [Z34.80] 09/30/2008 05/17/2009 Previous Delivery, Antepartum Conditio*09/30/2008 05/17/2009 Elderly Multigravida with Antepartum Condition *09/30/2008 05/17/2009 Tobacco abuse [Z72.0] 10/08/2012 07/13/2024 Family history of diabetes mellitus [Z83.3] 10/08/2012 Encounter Status:Closed by TARSHA TYLER on 08/18/24 Normal [facility] Urine Cultureon 08-07-2024 [facility] Presumptive E. coli [place] Count 80,000-100,000 Presumptive E. coli: REACTION Ampicillin Islt KESHA 8 Ampicillin+Sulbac Islt KESHA <=2 S Cefepime Islt KESHA <=0.12 S cefTRIAXone Islt KESHA <=0.25 S Ciprofloxacin Islt KESHA <=0.06 S B-Lactamase Extended Susc Islt NEG Gentamicin Islt KESHA <=1 S levoFLOXacin Islt KESHA <=0.12 S Meropenem Islt KESHA <=0.25 S Nitrofurantoin Islt KESHA <=16 S Pip+Tazo Islt KESHA <=4 S TMP SMX Islt KESHA <=20 S Normal [facility] Comment on above: Performed By: #### M 100.2200, L502.0500 #### [facility] [address] [place], [place], [address] Microalbumin,Random Urineon 08-05-2024 MICROALBUMIN,UR 32.0 mg/L Normal NO RANGE EST. [facility] Comment on above: Performed By: #### M 100.2200, L502.0500 #### [facility] [address] [place], [address] Komal 07-17-2024 TARAN Telephone (OBGYWM) ODESSASHERRIE ([id number]) 1970 F Date Time Provider Department 07/17/24 TRUDY GOLDMAN OBGYWM During your visit today, we recorded the following information about you: Bee Johnson LPN 07/17/2024 9:43 AM Signed Patient was seen by Hemalatha Tyler on 07/13/2024 and was given Rx for Macrobid for UTI on 07/15/24. Patient has taken 1 dose of Macrobid and feels ok but is questioning if Macrobid is right antibiotic to take since she took Macrobid for UTI symptoms on 06/26/24 and still had symptoms so she went to [facility] and repeated urine culture on 07/05/2024 and was prescribed Bactrim. Urine Culture on 07-07-2024 [facility] Presumptive E. coli [place] Count 50,000-80,000 Presumptive E. coli: REACTION Please advise if patient should finish current Rx for Macrobid or if a different antibiotic is needed based on current urine culture collected at office on 07/13. Valerie Reeder APRN.TARA 07/17/2024 3:54 PM Signed Ok to stay on Macrobid and to follow up if symptoms persist Valerie Reeder APRN.Jesica Tay RN 07/17/2024 3:56 PM Signed Patient notified. Jesica Jackson RN Allergies As of Date: 07/17/2024 (No Known Allergies) Date Reviewed: 07/13/2024 Reviewed by: Tarsha Tyler APRN.CLIMATE CHANGE RISK ASSESSOR - Fully Assessed Reason for Visit: Medication Question [8748] Prescriptions as of 07/17/2024 - nitrofurantoin monohydrate and macrocrystal (MACROBID) 100 mg capsule Take 1 capsule by mouth two times a day for 7 days. - estradiol (ESTRACE) 1 mg tablet Take 1 tablet by mouth once daily. - progesterone micronized (PROMETRIUM) 100 mg capsule Take 1 capsule by mouth daily at bedtime. Meds Comments as of 04/27/2009: All medications reviewed todaySeptember 17, 2008 Dominga Rudd Rn All medications have been reviewed todayAugust 27, 2007 Ladan Bach Lpn All medications have been reviewed today/July 30, 2007 Ladan Bach Lpn All medications have been reviewed todayJuly 18, 2007 Ladan Bach Lpn Problem List As Of Date 07/17/2024 Noted Resolved SUPERVIS OTHER NORMAL PREG [Z34.80] 11/14/2006 11/20/2006 SUPRV HIGH-RISK PREG NOS [O09.90] 11/20/2006 07/21/2007 AMA MULTIGRAVID-ANTEPARTUM [O09.529] 11/20/2006 07/21/2007 Supervision of Other Normal [Z34.80] 09/30/2008 05/17/2009 Previous Delivery, Antepartum Conditio*09/30/2008 05/17/2009 Elderly Multigravida with Antepartum Condition *09/30/2008 05/17/2009 Tobacco abuse [Z72.0] 10/08/2012 07/13/2024 Family history of diabetes mellitus [Z83.3] 10/08/2012 Encounter Status:Closed by JES[facility]17/[facility] T[facility]AN Tele[facility] (OBGYWM) SHERRIE SAXENA ([id number]) 1970 F Date Time Provider Department 07/15/24 TARSHA TYLER OBNICK During your visit today, we recorded the following information about you: Tarsha Tyler APRN.CNP 07/15/2024 8:00 AM Signed Please let the patient know that I will send another round of Macrobid for her since there is still a slight bladder infection going on. Tarsha Tyler APRN.Sergey Alberto RN 07/15/2024 8:41 AM Signed Pt notified and voiced understanding. Sergey Strickland RN Allergies As of Date: 07/15/2024 (No Known Allergies) Date Reviewed: 07/13/2024 Reviewed by: Tarsha Tyler APRN.TARA - Fully Assessed Reason for Visit: Results [95] Order(s):nitrofurantoi n monohydrate and macrocrystal (MACROBID) 100 mg capsuleTake 1 capsule by mouth two times a day for 7 days.Disp: 14 capsuleRfl: 0 Prescriptions as of 07/17/2024 - nitrofurantoin monohydrate and macrocrystal (MACROBID) 100 mg capsule Take 1 capsule by mouth two times a day for 7 days. - estradiol (ESTRACE) 1 mg tablet Take 1 tablet by mouth once daily. - progesterone micronized (PROMETRIUM) 100 mg capsule Take 1 capsule by mouth daily at bedtime. Meds Comments as of 04/27/2009: All medications reviewed today/September 17, 2008 Dominga Rudd Rn All medications have been reviewed today/August 27, 2007 Ladan Bach Lpn All medications have been reviewed today/July 30, 2007 Ladan Bach Lpn All medications have been reviewed today/July 18, 2007 Ladan Bach Lpn Problem List As Of Date 07/15/2024 Noted Resolved SUPERVIS OTHER NORMAL PREG [Z34.80] 11/14/2006 11/20/2006 SUPRV HIGH-RISK PREG NOS [O09.90] 11/20/2006 07/21/2007 AMA MULTIGRAVID-ANTEPARTUM [O09.529] 11/20/2006 07/21/2007 Supervision of Other Normal [Z34.80] 09/30/2008 05/17/2009 Previous Delivery, Antepartum Conditio*09/30/2008 05/17/2009 Elderly Multigravida with Antepartum Condition *09/30/2008 05/17/2009 Tobacco abuse [Z72.0] 10/08/2012 07/13/2024 Family history of diabetes mellitus [Z83.3] 10/08/2012 Prescriptions ordered this encounter Disp Refills Start End NITROFURANTOIN MONOHYDRATE AND MACROCR* 14 c* 0 07/15/2024 07/22/2024 Route: ORAL Sig: Take 1 capsule by mouth two times a day for 7 days. Encounter Status:Closed by SERGEY STRICKLAND on 07/15/24 Normal [facility] Bacteria Ur Culton Bacteria identified Cx Nom (U) ORGANISM ID: 1 10,000 -<50,000 CFU/ml Streptococcus anginosus No susceptibility testing done. Normal [facility] Comment on above: Performed By: #### 6 30-4 #### [facility] CLIA [id number] [address] [place] [address] CNOVon 07-13-2024 CNOV Office Visit (OBGYWM ) ODESSASHERRIE SALAZAR ([id number]) 1970 F Date Time Provider Department 07/13/24 1:00 PM TARSHA TYLER OBGYWM During your visit today, we recorded the following information about you: Blood pressure Weight Height Last Period 122/60 66.7 kg 1.651 m 03/06/24 Tarsha Tyler APRN.CLIMATE CHANGE RISK ASSESSOR 07/13/2024 1:32 PM Signed Patient declined post hole digger. Sherrie is a 54 year old who presents for an annual gynecologic exam with complaints, reported UTI x2 ATB completed x1 wk prior, denied vaginal discharge. Postmenopausal: menses irregular LMP March 2024 x3 day light flow. HRT use: No. Last Pap: 07/22/2023 normal HPV: 07/16/2023 negative History of abnormal pap: No Last mammogram: 2022 normal History of abnormal mammogram: No Sexually active: Yes Pain with intercourse: Yes Postcoital bleeding: No Hot flashes: Yes Night sweats: Yes OB History T4 L4 SAB0 IAB1 Ectopic0 Multiple0 Live Births5 Regulatory Compliance Officer History LMP: 06/10/2023 (Approximate), Having periods Age at Menarche: Age at First : Age at Menopause: Regulatory Compliance Officer History Comments: Sexual Activity: Yes; Male Contraception: Tubal Ligation PAST MEDICAL HISTORY Diagnosis Date NEGATIVE MEDICAL HISTORY PAST SURGICAL HISTORY Procedure Laterality Date DELIVERY ONLY 07/18/07,05/03/2009 for previa LIG/TRNSXJ FLP TUBE ABDL/VAG APPR UNI/BI 1994 Tubal ligation LIG/TRNSXJ FLP TUBE ABDL/VAG APPR UNI/BI 2008 Tubal ligation PAST SURGICAL HISTORY OF 09/08 TUBAL REVERSAL PAST SURGICAL HISTORY OF Left 03/2015 shoulder surgery FAMILY HISTORY Problem Relation Age of Onset other (LIVER DISEASE) Mother Hypertension Father Diabetes Father Heart Father SOCIAL HISTORY Social History Tobacco Use Smoking status: Former Current packs/day: 0.00 Average packs/day: 0.5 packs/day for 14.0 years (7.0 ttl pk-yrs) Types: Cigarettes Start date: 06/02/1994 Quit date: 06/02/2008 Years since quittin.1 Smokeless tobacco: Never Vaping Use Vaping status: Former Substance Use Topics Alcohol use: Yes Comment: social,BUT NOT WHILE Drug use: No REVIEW OF SYSTEMS Abdomen: No abdominal pain, nausea, vomiting, diarrhea, or constipation. No bloating, early satiety, indigestion, or increased flatulence. Bladder: No dysuria, gross hematuria, urinary frequency, urinary urgency, or incontinence and irritation Breast: No breast lumps, nipple d/c, overlying skin changes, redness or skin retraction Allergies and current medication updated:Yes SENSITIVE EXAM: The sensitive examination was discussed with the Patient or Patient's Authorized Supervisor Waterworks. As applicable, any other physician, advance practice provider, medical student, or other health professional student that will be observing or involved in the sensitive examination for educational or training purposes was discussed with the Patient or Authorized Supervisor Waterworks. The Patient or Authorized Supervisor Waterworks has agreed to proceed with the sensitive examination. (Sensitive examination includes inspection and/or palpation of the breasts, pelvis, prostate and anorectal regions). EXAM: LMP 06/10/2023 GENERAL: pleasant, female in no apparent distress [...] external genitalia normal, normal Bartholin's glands, urethra, Faywood's glands, no vulvar lesions, no cervical lesions, physiologic discharge present, normal appearing perineal body and perianal region BIMANUAL: uterus normal size, shape and consistency, no adnexal masses, and non-tender RECTOVAGINAL: deferred. NEURO: alert and oriented x3,exam grossly non-focal EXTREMITIES: normal ASSESSMENT/PLAN: 1) Health maintenance: Pap/HPV up to date. Mammogram ordered Nutrition, exercise and routine health maintenance exams reviewed. Calcium/Vitamin D supplementation information provided. Colon cancer screening: up to date with screening Cologuard 2022 2) Follow up one year or sooner as needed 3) Estrace 1 mg and Prometrium ordered- follow up in 5 wks 4) urine culture Tarsha Tyler APRN.CLIMATE CHANGE RISK ASSESSOR Allergies As of Date: 07/13/2024 (No Known Allergies) Date Reviewed: 07/13/2024 Reviewed by: Tarsha Tyler APRN.CLIMATE CHANGE RISK ASSESSOR - Fully Assessed Reason for Visit: Well Woman [1463] Primary Visit Diagnosis:Encounter for gynecological examination (general) (routine) without abnormal findings [Z01.419] Other Visit Diagnoses:Encounter for screening mammogram for breast cancer (more content not included)... Normal [facility] UA DIP, URINE (POC)on 2023 BILIRUBIN UA (POCT) Negative Negative [facility] CLARITY UA (POCT) Clear [facility] COLOR UA (POCT) Yellow [facility] GLUCOSE UA (POCT) Negative Negative mg/dL [facility] Hemoglobin Ql (U) Negative Negative [facility] KETONE UA (POCT) Negative Negative mg/dL [facility] LEUKOCYTES UA (POCT) Negative Negative [facility] NITRITE UA (POCT) Negative Negative [facility] PH UA (POCT) 5.5 4.5 - 8.0 [facility] Protein Ql (U) Negative Negative mg/dL [facility] SPECIFIC GRAVITY UA (POCT) 1.025 1.005 - 1.030 [facility] UROBILINOGEN UA (POCT) 0.2 Christel l E.U./dL [facility] Location:[facility], [address], [place], [place], [id number] [place] [address] POINT OF CARE [facility] Urine Cultureon 07-07-2024 URC Presumptive E. coli [place] Count 50,000-80,000 Presumptive E. coli: REACTION Ampicillin Islt KESHA 4 Ampicillin+Sulbac Islt KESHA <=2 S ceFAZolin Islt KESHA <=4 S Cefepime Islt KESHA <=0.12 S cefTRIAXone Islt KESHA <=0.25 S Ciprofloxacin Islt KESHA <=0.25 S B-Lactamase Extended Susc Islt NEG Gentamicin Islt KESHA <=1 S Imipenem Islt KESHA <=0.25 S levoFLOXacin Islt KESHA <=0.12 S Nitrofurantoin Islt KESHA <=16 S Pip+Tazo Islt KESHA <=4 S Tobramycin Islt KESHA <=1 S TMP SMX Islt KESHA <=20 S Normal [facility] Comment on above: Performed By: #### M [id number] #### [facility] [address] [place], [place], [address] Urgent Care Visit Reporton 1 09-03-2023 Urgent Care Visit Report [facility] [address] , [address] [place] [address] OFFICE VISIT Date of Service: 07/04/24 MR#: [id number] Acct: [id number] Name: SHERRIE SAXENA Rep #: [id number] : 1970 Provider: DWAYNE Ch Age/Sex: 54/F Location: [facility] Status: Signed Intake Vital Signs 07/04/24 10:03 Height 5 ft 6 in Weight: 147 lb 4 oz BMI 23.8 BP 120/60 Blood Pressure Location Lt brachial Position Sitting Respiration 15 Pulse 82 Pulse Source NIBP Temp 98.6 F Temp Source Oral Pulse Oximetry (%) 98 Oxygen Delivery Method room air Intake Visit Reasons: Urinary tract infection Chief Complaint: dysuria, frequency Decker Operator Required: No Is patient in pain?: No Allergies No Known Allergies Allergy (Verified 07/04/24 10:29) Medications ???Medication ???Instructions ???Recorded ???Confirmed ???Type ibuprofen 100 mg tablet (Advil) PO 11/11/17 11/11/17 History sulfamethoxazole 800 1 tab PO Q12H 5 days #10 tabs 07/04/24 07/04/24 Rx mg-trimethoprim 160 mg tablet (Bactrim DS) Is last menstrual period known: No Post menopausal: Yes Patient : No Have you fallen in the past year?: No Nurse's Note: dysuria, frequency. pt finished 5 days of Macrobid from PCP. s/s have improved but continues to have slight dysuria. concern not completely treated. denies abd pain, fever, blood. no culture done at PCP office [facility] Medical History (Updated 07/04/24 @ 10:02 by Nena Matthews) Environmental allergies labrum tear Hay fever Shoulder pain Surgical History (Updated 07/04/24 @ 10:02 by Nena Matthews) History of shoulder surgery Hx of section Family History (Updated 11/11/17 @ 17:49 by Anne Huang) Other Heart disease Liver disease Social History (Updated 11/11/17 @ 18:04 by Jorge MCCARTY, PA) Smoking Status: Current every day smoker alcohol intake: never HPI HPI Chief Complaint: dysuria, frequency Details: SHERRIE SAXENA, is a 54 F who presents to the office today for ? uti -recently tx for uti with macrbid- last dose Saturday morning- not sure if rand raissa culture -sx improved but then yesterday with dysuria, frequency. Denies blood or discharge -no fever or chills. Denies back/abd/pelvic pain- states walked a lot yesterday so has a little low back pain so not sure if associated with that -tried so tons of water ROS Const Constitutional: Positive for other (ROS negative x6 except what was placed in HPI) Exam Const General: cooperative, healthy appearing, comfortable and no acute distress Resp Effort Inspection: normal respiratory effort, able to speak in complete sentences and symmetric chest movement Auscultation: Bilateral: Clear to Auscultation, Left: Clear to Auscultation and Right: Clear to Auscultation Cardio Rate: regular rate Rhythm: regular rhythm Heart Sounds: S1 normal and S2 normal GI Auscultation: normal bowel sounds Palpation: soft and no hepatosplenomegaly Other: -no CVA tenderness -no abd/pelvic pressure with palpation Neuro General: patient alert, patient awake and patient oriented x3 Extrem General: normal to inspection and full ROM Psych Appearance: grossly normal Mental Status: mental status grossly normal Attitude: cooperative Thought Process: normal Thought Content: normal Judgment: judgment good Results POC Urinalysis Dip (Clinic) Office Urine Color Yellow Last Edit by Nena Matthews on 07/04/24 10:15 Office Urine Clarity Clear Last Edit by Nena Matthews on 07/04/24 10:15 Office Urine Glucose Negative Last Edit by Nena Matthews on 07/04/24 10:15 Office Urine Ketones Negative Last Edit by Nena Matthews on 07/04/24 10:15 Off Ur Spec [place] 1.010 Last Edit by Nena Matthews on 07/04/24 10:15 Office Urine pH 7.5 Last Edit by Nena Matthews on 07/04/24 10:15 Office Urine Bilirubin Negative Last Edit by Nena Matthews on 07/04/24 10:15 Office Urine Urobilinogen Negative Last Edit by Nnea Matthews on 07/04/24 10:15 Office Urine Blood Negative Last Edit by Nena Matthews on 07/04/24 10:15 Office Urine Blood Hemolyzed Small Last Edit by Nena Matthews on 07/04/24 10:15 Office Urine Protein Negative Last Edit by Nena Matthews on 07/04/24 10:15 Office Urine Nitrate Negative Last Edit by Nena Matthews on 07/04/24 10:15 Off Ur Leukocytes Positive Last Edit by Nena Matthews on 07/04/24 10:15 Coding Level of Care Code Off vis,new,level 3 Diagnoses Acute cystitis with hematuria N30.01 Urinary tract infection type: acute cystitis Hematuria presence: with hematuria Assessment and Plan Assessment and Plan (1) Urinary tract infection: Qualifiers: Urinary tract infection type: acute cystitis Hematuria presence: with hematuria Qualified Code (more content not included)... Normal [facility] Absolute lymphocyte countOrd ered By: Titus Bass on 08-15-2023 Lymphocytes Auto (Unsp spec) [#/Vol] 1.44 10*3/uL 0.83-4.51 [facility] Basophil percentageOrdered B y: Titus Bass on 08-15-2023 Basophils/100 WBC (Bld) 0.5 % 0-1 [facility] Bilirubin [Mass/Vol] 0.60 mg/dL 0.20-1.00 [facility] Comment on above: For patients on eltr ombopag therapy, use of Dimension [place] TBIL is not recommended. Chloride [Moles/Vol] 108 mmol/L 98-107 [facility] Cholesterol [Mass/Vol] 195 mg/dL <200 [facility] Comment on above: <200 mg/dL Desirable 200-240 mg/dL Borderline >240 mg/dL High Risk Eosinophils/100 WBC (Bld) 1.4 % 0-5 [facility] Glucose [Mass/Vol] 89 mg/dL 74-106 [facility] Neutrophils (Bld) [#/Vol] 2.5 10*3/uL 2.0-7.7 [facility] Neutrophils/100 WBC (Bld) 57.1 % 47-70 [facility] Potassium [Moles/Vol] 3.7 mmol/L 3.5-5.1 [facility] Protein [Mass/Vol] 7.0 g/dL 6.4-8.2 [facility] Sodium [Moles/Vol] 140 mmol/L 136-145 [facility] Triglyceride [Mass/Vol] 111 mg/dL <199 [facility] Comment on above: The drugs N-Acetylcy steine and Metamizole may falsely depress this assay.Serum Triglycerides Reference Interval Normal <150 mg/dL Borderline high 150 - 199 mg/dL High 200 - 499 mg/dL Very High > or = 500 mg/dL WBC (Bld) [#/Vol] 4.4 10*3/uL 4.4-11.0 [facility] Blood erythrocytes count (nu mber/volume)Ordered By: Titus Bass on 08-15-2023 RBC (Bld) [#/Vol] 4.76 10*6/uL 4.2-5.4 [facility] Blood hemoglobin measurement (mass/volume)Ordered By: Titus Bass on 08-15-2023 Hemoglobin (Bld) [Mass/Vol] 14.0 g/dL 12.0-15.0 [facility] Blood lymphocytes/100 leukoc ytesOrdered By: Titus Bass on 08-15-2023 Lymphocytes/100 WBC (Bld) 32.8 % 19-41 [facility] Blood monocytes/100 leukocyt esOrdered By: Titus Bass on 08-15-2023 Monocytes/100 WBC (Bld) 8.0 % 0-10 [facility] Blood platelet mean volumeOr dered By: Titus Bass on 08-15-2023 Platelet mean volume (Bld) [Entitic vol] 9.6 fL 6.2-12.0 [facility] Determination of erythrocyte mean corpuscular volume (MCV)Ordered By: Titus Bass on 08-15-2023 MCV (RBC) [Entitic vol] 88.9 fL 81-99 [facility] Hematocrit Auto (Bld) [Volum e fraction]Ordered By: Titus Bass on 08-15-2023 Hematocrit (Bld) [Volume fraction] 42.3 % 37-47 [facility] - Chemistry and C hemistry - challengeOrdered By: Titus Bass on 08-15-2023 ALP [Catalytic activity/Vol] 41 U/L 45-117 [facility] ALT [Catalytic activity/Vol] 16 U/L 13-56 [facility] CO2 [Moles/Vol] 29.0 mmol/L 21.0-32.0 [facility] Globulin (S) [Mass/Vol] 3.4 g/dL 2.2-4.2 [facility] Urea nitrogen/Creatinine [Mass ratio] 16.6 mg/mg 10-20 [facility] - Hematology and Cell countsOrdered By: Titus Bass on 08-15-2023 Erythrocyte distribution width (RBC) [Entitic vol] 38.1 fL 35.1-43.9 [facility] Erythrocyte distribution width (RBC) [Ratio] 11.8 % 11.6-14.6 [facility] Immature granulocytes/100 WBC (Bld) 0.200 % 0.0-0.9 [facility] Comment on above: IG% - Immature Granu locytes (promyelocytes, myelocytes and metamyelocytes) > 1% indicates that a LEFT SHIFT is Present. MCH (RBC) [Entitic mass] 29.4 pg 27.0-32.0 [facility] Nucleated RBC/100 WBC (Bld) [Ratio] 0 % 0-5 [facility] MCHC Auto (RBC) [Mass/Vol]Or dered By: Titus Bass on 08-15-2023 MCHC (RBC) [Mass/Vol] 33.1 g/dL 32-36 [facility] No Panel InformationOrdered By: Titus Bass on 08-15-2023 Estimated GFR (MDRD) Amer 84 mL/min >60 [facility] Comment on above: GFR Calc Estimated GFR (MDRD) Non-Af Amer 69 mL/min >60 [facility] Comment on above: Non- GFR Calc Thyroid Stimulating Hormone (TSH) 0.57 uIU/mL 0.358-3.74 [facility] Platelets bldOrdered By: Héctor Bass on 08-15-2023 Platelets (Bld) [#/Vol] 246 10*3/uL 150-450 [facility] Serum or plasma albumin kane urement (mass/volume)Ordered By: Titus Bass on 08-15-2023 Albumin [Mass/Vol] 3.6 g/dL 3.2-5.0 [facility] Serum or plasma albumin/glob ulin mass ratioOrdered By: Titus Bass on 08-15-2023 Albumin/Globulin [Mass ratio] 1.1 {ratio} 0.9-2.4 [facility] Serum or plasma calcium kane urement (mass/volume)Ordered By: Titus Bass on 08-15-2023 Calcium [Mass/Vol] 8.9 mg/dL 8.5-10.1 [facility] Serum or plasma cholesterol in HDL measurement (mass/volume)Ordered By: Titus Bass on 08-15-2023 Cholesterol in HDL [Mass/Vol] 68 mg/dL >40 [facility] Comment on above: The drugs N-Acetylcy steine and Metamizole may falsely depress this assay. Reference Range HDL <40 mg/dL Low HDL Cholesterol HDL >or= 60 mg/dL High HDL Cholesterol Serum or plasma cholesterol in VLDL measurement (mass/volume)Ordered By: Titus Bass on 08-15-2023 Cholesterol in VLDL [Mass/Vol] 22 mg/dL 5-40 [facility] Serum or plasma creatinine m easurement (mass/volume)Ordered By: Titus Bass on 08-15-2023 Creatinine [Mass/Vol] 0.90 mg/dL 0.55-1.02 [facility] Comment on above: The validity of the calculated GFR & GFRAA in patients over 70 years has not been determined. Clinical correlation is essential. Serum or plasma low density lipoprotein (LDL) cholesterol measurement (mass/volume)Ordered By: Titus Bass on 08-15-2023 Cholesterol in LDL [Mass/Vol] 105 mg/dL 0-130 [facility] Serum or plasma urea nitroge n measurement (mass/volume)Ordered By: Titus Bass on 08-15-2023 Urea nitrogen [Mass/Vol] 15 mg/dL 7-18 [facility] Thin prep Papanicolaou smear with manual screeningOrdered By: Titus Bass on 08-15-2023 Thin prep Papanicolaou smear with manual screening 13 U/L 15-37 [facility] Thin prep Papanicolaou smear with manual screening 3 5-15 [facility] Vital Signs Date Time Vital Sign Value Performing Clinician Jenny steven 07-13-2024 13:02-0500 Body height 165.1 cm Tarsha Tyler TRACK DRESSER.TARA Work Phone: [facility] 07-13-2024 13:02-0500 Body mass index (BMI) [Ratio] 24.46 kg/m2 Tarsha Nayeli TRACK DRESSER.TARA Work Phone: [facility] 07-13-2024 13:02-0500 Body weight 66.68 kg Tarsha Nayeli TRACK DRESSER.TARA Work Phone: [facility] 07-13-2024 13:02-0500 Diastolic blood pressure 60 mm[Hg] Tarsha Hartford TRACK DRESSER.CLIMATE CHANGE RISK ASSESSOR Work Phone: [facility] 07-13-2024 13:02-0500 Systolic blood pressure 122 mm[Hg] Tarsha Hartford TRACK DRESSER.CLIMATE CHANGE RISK ASSESSOR Work Phone: [facility] 07-11-2023 10:33-0500 Body height 166 cm Tarsha Hartford TRACK DRESSER.CLIMATE CHANGE RISK ASSESSOR Work Phone: [facility] 07-11-2023 10:33-0500 Body weight 64.77 kg Tarsha Hartford TRACK DRESSER.CLIMATE CHANGE RISK ASSESSOR Work Phone: [facility] 07-11-2023 10:33-0500 Diastolic blood pressure 72 mm[Hg] Tarsha Hartford TRACK DRESSER.CLIMATE CHANGE RISK ASSESSOR Work Phone: [facility] 07-11-2023 10:33-0500 Systolic blood pressure 102 mm[Hg] Tarsha Nayeli TRACK DRESSER.CLIMATE CHANGE RISK ASSESSOR Work Phone: [facility] Encounters Encounter Date Encounter Type Care Provider Facility Start: 04-30-2025 End: 04-30-2025 ambulatory Tarsha Nayeli TRACK DRESSER.CLIMATE CHANGE RISK ASSESSOR Work Phone: OB/Gynecology Comment on above: Sexual dysfunction ( Primary Dx) Start: 04-30-2025 End: 04-30-2025 Telemedicine consultation with patient Tarsha Nayeli TRACK DRESSER.CLIMATE CHANGE RISK ASSESSOR Work Phone: OB/Gynecology Start: 01-12-2025 End: 01-12-2025 Refill Tarsha Hartford TRACK DRESSER.CLIMATE CHANGE RISK ASSESSOR Work Phone: OB/Gynecology Comment on above: Refill Request Start: 09-18-2024 Encounter for genera l adult medical examination without abnormal findings Anne-Marie Stanley [facility] Start: 09-09-2024 End: 09-09-2024 ambulatory Erin Mota Facility:[facility] Start: 08-18-2024 End: 08-18-2024 ambulatory Clay [facility] Press [facility] Work Phone: OB/Gy[facility] Start: 08-18-2024 End: 08-18-2024 Patient encounter procedure [employer] [facility] Start: 08-17-2024 End: 08-18-2024 Telephone encounter Tarsha Tyler TRACK DRESSER.CLIMATE CHANGE RISK ASSESSOR Work Phone: OB/Gynecology Comment on above: Appointment Start: 08-17-2024 End: 08-18-2024 ambulatory Tarsha Riverocalf TRACK DRESSER.CLIMATE CHANGE RISK ASSESSOR Work Phone: OB/Gynecology Comment on above: Menopausal symptoms (Primary Dx); Abnormal uterine bleeding (AUB) Start: 08-17-2024 End: 08-17-2024 Telemedicine consultation with patient Tarsha Nayeli TRACK DRESSER.CLIMATE CHANGE RISK ASSESSOR Work Phone: OB/Gynecology Start: 08-05-2024 End: 08-05-2024 ambulatory Teetee Miner NP Facility:[facility] Start: 07-17-2024 End: 07-17-2024 Telephone encounter Trudy Moscoso MD Work Phone: OB/Gynecology Comment on above: Medication Question Start: 07-15-2024 End: 07-15-2024 Telephone encounter Tarsha Nayeli TRACK DRESSER.CLIMATE CHANGE RISK ASSESSOR Work Phone: OB/Gynecology Comment on above: Results Start: 07-13-2024 End: 07-13-2024 ambulatory TARSHA RIVEROCALF Facility:[facility] Start: 07-13-2024 End: 07-13-2024 Patient encounter procedure Tarsha Riverocalf TRACK DRESSER.CLIMATE CHANGE RISK ASSESSOR Work Phone: OB/Gynecology Comment on above: Encounter for gyneco logical examination (general) (routine) without abnormal findings (Primary Dx); Encounter for screening mammogram for breast cancer; Bladder irritation; Menopausal symptoms Start: 07-13-2024 End: 07-13-2024 Patient encounter status Tarsha Hartford TRACK DRESSER.CLIMATE CHANGE RISK ASSESSOR Work Phone: [facility] Start: 07-04-2024 End: 07-05-2024 ambulatory [facility] Facility:[facility] Start: 08-29-2023 End: 08-29-2023 ambulatory [facility] Work Phone: Start: 08-29-2023 End: 08-29-2023 Patient encounter procedure [facility]-Cat Scan, [facility] Work Phone: Start: 08-15-2023 End: 08-15-2023 Patient encounter procedure [facility]-Laboratory, [place] Work Phone: Start: 07-30-2023 Documentation procedure Mammog shelly Coordinator [facility] Start: 07-30-2023 Letter encounter Mammography Coordinator [facility] Department Start: 07-11-2023 End: 07-11-2023 Patient encounter procedure Tarsha Tyler APRN.CNP Work Phone: OB/Gynecology Comment on above: Encounter for gyneco logical examination (general) (routine) without abnormal findings (Primary Dx); Encounter for screening for human papillomavirus (HPV); Encounter for screening mammogram for breast cancer; Screening for malignant neoplasm of cervix Start: 07-11-2023 End: 07-11-2023 Patient encounter status Tarsha Tyler APRN.CNP Work Phone: [facility] Work Phone: Procedures Date Procedure Procedure Detail Performing Clinician Start: 08-18-2024 Us pelvic nonobstetric real-time image complete Tarsha Tyler APRN.CNP Work Phone: Start: 07-13-2024 Urnls dip stick/tablet rgnt auto w/o microscopy Tarsha Tyler APRN.CNP Work Phone: Start: 08-29-2023 CT of chest Start: 10-16-2012 Lipid 1996 panel - Serum or Plasma Tarsha Tyler APRN.CNP Work Phone: Start: 09-30-2008 End: 05-17-2009 H/O: section Previous delivery, antepartum condition or complication Tarsha Tyler APRN.CNP Work Phone: Plan of Treatment Date Care Activity Detail Author Start: 07-11-2028 HPV Testing HPV Testing [facility] Start: 07-11-2028 Pap Testing Pap Testing [facility] Start: 07-11-2028 Screening for malign ant neoplasm of cervix Cervical Cancer Screening [facility] Start: 07-04-2028 Urine microalbumin profile DTaP,Tdap,Td Vaccine (2 - Td or Tdap) [facility] Start: 09-25-2025 Screening for malign ant neoplasm of colon [facility] Start: 07-15-2025 End: 07-15-2025 Patient encounter procedure 07/15/2025 3:30 PM EST Office Visit OB/Gynecology [address] [place] [address] Tarsha Tyler APRN.CLIMATE CHANGE RISK ASSESSOR [address] [place] [address] Annual OB/Gynecology Comment on above: Annual Start: 05-03-2025 Influenza vaccination [facility] Start: 08-18-2024 End: 08-18-2024 ambulatory 08/18/2024 11:00 AM EST Procedure OB/Gynecology [address] [place] [address] Remote, [employer] Us [address] [place] [address] Abnormal uterine bleeding (AUB) [N93.9] OB/Gynecology Comment on above: Abnormal uterine ble eding (AUB) [N93.9] Start: 08-17-2024 End: 08-17-2025 US Pelvis PELVIC US [facility] Anc Imaging Routine Abnormal uterine bleeding (AUB) Expected: 08/17/2024, Expires: 08/17/2025 [facility] Work Phone: Comment on above: Expected: 08/17/2024 , Expires: 08/17/2025 Start: 08-17-2024 End: 08-17-2024 Follow-up encounter 08/17/2024 12:45 PM EST [facility] OB/Gynecology [address] [place] [address] Tarsha Tyler, COLEEN.CLIMATE CHANGE RISK ASSESSOR [address] [place] [address] HRT Follow UP OB/Gynecology Comment on above: HRT Follow UP Start: 08-03-2024 End: 08-03-2024 Patient encounter procedure 08/03/2024 12:50 PM EST Appointment Mammogram [address] [place] [address] Encounter for screening mammogram for breast cancer [Z12.31] Mammogram Comment on above: Encounter for screen ing mammogram for breast cancer [Z12.31] Start: 07-29-2024 Mammography Mammogram Screening [facility] Start: 07-29-2024 Screening for malign ant neoplasm of breast Mammogram Screening [facility] Start: 05-03-2024 Covid-19 Vaccine ( season) Covid-19 Vaccine () [facility] Start: 05-03-2024 Influenza vaccination Influenza Vacc ine (#1) [facility] Start: 07-07-2023 HPV Testing HPV Testing [facility] Start: 07-07-2023 Pap Testing Pap Testing [facility] Start: 05-03-2023 Covid-19 Vaccine () Covid-19 Vaccine () [facility] Start: 05-03-2023 Influenza vaccination Influenza Vacc ine (#1) [facility] Start: 09-02-2022 Depression Assessment Depression Ass essment [facility] Start: 11-24-2021 Pneumococcal Vaccine : 50+ (2 of 2 - PCV) Pneumococcal Vaccine: 50+ (2 of 2 - PCV) [facility] Start: 10-19-2021 Shingrix Vaccine (2 of 2) Shingrix Vaccine (2 of 2) [facility] Start: 07-15-2019 Mammography Mammogram Screening [facility] Start: 10-16-2017 Lipid 1996 panel - Serum or Plasma Lipid Screening [facility] Start: 10-16-2017 Lipid panel Lipid Screening [facility] Start: 02-01-2016 Cologuard (FIT-DNA) Cologuard (FIT-D NA) [facility] Start: 02-01-2016 Colonoscopy Colonoscopy [facility] Start: 02-01-2016 Colorectal Cancer Screening Colorectal Cancer Screening [facility] Start: 02-01-[address] Colonography [facility] Start: 02-01-2016 Diabetes Screening Diabetes Screenin g [facility] Start: 02-01-2016 Fecal Occult Blood Fecal Occult Bloo d [facility] Start: 02-01-2016 Screening for malign ant neoplasm of colon [facility] Start: 02-01-2016 Sigmoidoscopy Sigmoidoscopy [facility] Start: 1990 Hepatitis B Vaccine (1 of 3 - 19+ 3-dose series) Hepatitis B Vaccine (1 of 3 - 19+ 3-dose series) [facility] Start: 1989 Anxiety Screening Anxiety Screening [facility] Start: 1989 Depression Screening Depression Scre ening [facility] Start: 1989 Hepatitis C Screening Hepatitis C [facility] Start: 1989 Hepatitis C screening Hepatitis C [facility] Start: 1989 HIV Screening HIV Screening [facility] Start: 1989 HIV screening HIV Screening [facility] Start: 1971 Hepatitis B Vaccine (1 of 3 - 3-dose series) Hepatitis B Vaccine (1 of 3 - 3-dose series) [facility] Bacteria identified in Urine by Culture URINE CULTURE Microbiology Routine Bladder irritation 07/13/2024 2:31 PM EST [facility] End: 08-12-2025 DBT Breast - bilateral screening MARY ANN SCREENING W AV Radiology Routine Encounter for gynecological examination (general) (routine) without abnormal findings Encounter for screening mammogram for breast cancer 1 Occurrences starting 07/13/2024 until 08/12/2025 [facility] Work Phone: Comment on above: 1 Occurrences starti ng 07/13/2024 until 08/12/2025 End: 08-09-2024 MARY ANN SCREENING MARY ANN SCREENING Radiology Routine Encounter for screening mammogram for breast cancer 1 Occurrences starting 07/11/2023 until 08/09/2024 [facility] Work Phone: Comment on above: 1 Occurrences starti ng 07/11/2023 until 08/09/2024 PAP TEST PAP TEST Lab Rou anna Encounter for gynecological examination (general) (routine) without abnormal findings Encounter for screening for human papillomavirus (HPV) 07/11/2023 11:12 AM EST [facility] Work Phone: [facility] c Immunizations Immunization Date Immunization Notes Care Provider Gerald baker 08-08-2022 influenza virus vacc ine, unspecified formulation Tarsha Tyler APRN.CLIMATE CHANGE RISK ASSESSOR Work Phone: [facility] Payers Date Payer Category Payer [employer] Blue [employer] BLUE ACCE SS PPO [id number] 2024 Unknown [id number] 2024 Self-pay [id number] 2021 Private Health Insurance [id number] 2021 Private Health Insurance [id number] Unknown [id number] Unknown [id number] Unknown [id number] Unknown [id number] Unknown [id number] Unknown [id number] Social History Date Type Detail Facility Start: 06-01-2021 End: 07-13-2024 Tobacco smoking status NHIS Ex-smoker [facility] Start: 06-02-1994 End: 06-02-2008 History of tobacco use Current smoker [facility] Start: 06-02-1994 End: 06-02-2008 History of tobacco use Cigarette Smoker [facility] Start: 06-01-2021 End: 07-11-2023 Cigarettes smoked current (pack per day) - Reported 0.5 [facility] Start: 06-01-2021 End: 07-13-2024 Tobacco use and exposure Smokeless tobacco non-user [facility] Start: 07-11-2023 End: 07-13-2024 Alcohol intake Current drinker of alcohol (finding) [facility] Start: 07-11-2023 End: 07-13-2024 Tobacco use panel [facility] Start: 08-03-2012 National Score (1-10 0), lower number is lower risk 36 [facility] Start: 09-17-2008 Alcohol Comment social,BUT NOT WHILE [facility] Start: 1970 Sex Assigned At Female [facility] Start: 07-11-2023 Gender identity Identifies as female gender (finding) [facility] Start: 07-11-2023 Sexual orientation Heterosexual (fin ding) [facility] Start: 11-11-2017 Tobacco smoking stat us [facility] Unknown if ever smoked [facility] Clinical Notes 09-30-2008 to 04-30-2025 Tarsha Tyler APRN.CLIMATE CHANGE RISK ASSESSOR - 04/30/2025 12:48 PM EDTTelephone Encounter - Candy Martell RN - 01/12/2025 3:27 PM EDTTelephone Encounter - Candy Martell RN - 01/12/2025 3:27 PM EDT Note Date & Type Note Facility 04-30-2025 Note HNO ID: [id number] Author: TARSHA TYLER APRN.CNP Service: ? Author Type: Nurse Practitioner Type: Progress Notes Filed: 04/30/2025 13:06 Note Text: Obstetrics and Gynecology [place] Virtual TECHNICAL SERVICES CONSULTANT Visit Subjective This is a virtual visit using Xradiah[employer] Zoom Video Visit. It required patient-provider interaction for the medical decision making as documented below. I have communicated my name and active licensure. The patient?s identity and physical location were verified at the time of this visit. Either the patient or their legal loss prevention representative has been informed of the risks and benefits of -- and alternatives to -- treatment through a remote evaluation and consents to proceed with the evaluation remotely. Recording using Nubimetrics software for draft documentation of the visit was discussed with the patient/authorized loss prevention representative; all questions welcomed and answered. Patient/authorized loss prevention representative agreed to proceed CHIEF COMPLAINT: The patient is a 55-year-old female presenting for prescription of flibanserin (Addyi). HPI: Sherrie Saxena is a 55 year old The patient is a 55-year-old female with a history of menopausal symptoms presenting with questions about Addyi. Menopausal Symptoms - Currently on hormone replacement therapy (HRT), taking estradiol in the morning and progesterone at night. - Also using an Estring, prescribed by her urologist. - Reports that all three treatments are doing wonderful with no complaints. Sexual Health - Inquires about Addyi and requests a prescription. - Has conducted online research about Addyi and inquires about potential issues or interactions with her current HRT. HISTORY: OB History Gravida5 Para4 Term4 Preterm0 AB1 Living4 SAB0 IAB1 Ectopic0 Multiple0 Live Births5 Regulatory Compliance Officer History LMP: 03/06/2024 (Approximate), Having periods Age at Menarche: Age at First : Age at Menopause: Regulatory Compliance Officer History Comments: Sexual Activity: Yes; Male Contraception: Tubal Ligation PAST MEDICAL HISTORY Diagnosis Date NEGATIVE MEDICAL HISTORY PAST SURGICAL HISTORY Procedure Laterality Date DELIVERY ONLY 07/18/07,05/03/2009 for previa LIG/TRNSXJ FLP TUBE ABDL/VAG APPR UNI/BI 1994 Tubal ligation LIG/TRNSXJ FLP TUBE ABDL/VAG APPR UNI/BI 2008 Tubal ligation PAST SURGICAL HISTORY OF 09/08 TUBAL REVERSAL PAST SURGICAL HISTORY OF Left 03/2015 shoulder surgery FAMILY HISTORY Problem Relation Age of Onset other (LIVER DISEASE) Mother Hypertension Father Diabetes Father Heart Father SOCIAL HISTORY[1] Current Outpatient Medications Medication Sig estradiol (ESTRING) 2 mg (7.5 mcg /24 hour) vaginal ring Use 2 mg vaginally every 3 months. follow package directions flibanserin (ADDYI) 100 mg tab Take 1 tablet by mouth once daily. estradiol (ESTRACE) 1 mg tablet Take 1 tablet by mouth once daily. progesterone micronized (PROMETRIUM) 100 mg capsule Take 1 capsule by mouth daily at bedtime. No current facility-administered medications for this visit. ALLERGIES No Known Allergies REVIEW OF SYSTEMS: Objective PHYSICAL EXAM: GENERAL: pleasant, {female in no apparent distress AANDO x 3. Assessment AND Plan ASSESSMENT AND PLAN: 1. Sexual dysfunction (R37) - No contraindications identified with current hormone therapy (estradiol and progesterone) or vaginal estrogen ring. - Start Addyi 100 mg PO QHS; prescription sent for 30 tablets with refills. - Discussed high cost and lack of insurance coverage; advised patient to explore sign poster discount programs and coupons. - Reviewed prior patient experiences with Addyi, noting effectiveness and minimal issues. - Patient expressed understanding of treatment plan and will assess medication affordability and efficacy over the next 30 days. Tarsha Tyler APRN.CLIMATE CHANGE RISK ASSESSOR Medical Decision Making: Problems: Low: Acute, uncomplicated illness or injury Risk: Moderate: Drug management Medical Decision Making Level: 3 - Low [1] Social History Tobacco Use Smoking status: Former Current packs/day: 0.00 Average packs/day: 0.5 packs/day for 14.0 years (7.0 ttl pk-yrs) Types: Cigarettes Start date: 06/02/1994 Quit date: 06/02/2008 Years since quittin.9 Smokeless tobacco: Never Vaping Use Vaping status: Former Substance Use Topics Alcohol use: Yes Comment: social,BUT NOT WHILE Drug use: No [facility] 04-30-2025 History of Presen t illness Narrative Images from the original note were not included. Obstetrics and Gynecology [place] Virtual TECHNICAL SERVICES CONSULTANT Visit Subjective This is a virtual visit using Bringrr Zoom Video Visit. It required patient-provider interaction for the medical decision making as documented below. I have communicated my name and active licensure. The patient s identity and physical location were verified at the time of this visit. Either the patient or their legal loss prevention representative has been informed of the risks and benefits of -- and alternatives to -- treatment through a remote evaluation and consents to proceed with the evaluation remotely. Recording using Nubimetrics software for draft documentation of the visit was discussed with the patient/authorized loss prevention representative; all questions welcomed and answered. Patient/authorized loss prevention representative agreed to proceed CHIEF COMPLAINT: The patient is a 55-year-old female presenting for prescription of flibanserin (Addyi). HPI: Sherrie Saxena is a 55 year old The patient is a 55-year-old female with a history of menopausal symptoms presenting with questions about Addyi. Menopausal Symptoms - Currently on hormone replacement therapy (HRT), taking estradiol in the morning and progesterone at night. - Also using an Estring, prescribed by her urologist. - Reports that all three treatments are doing wonderful with no complaints. Sexual Health - Inquires about Addyi and requests a prescription. - Has conducted online research about Addyi and inquires about potential issues or interactions with her current HRT. HISTORY: OB History Gravida5 Para4 Term4 Preterm0 AB1 Living4 SAB0 IAB1 Ectopic0 Multiple0 Live Births5 Regulatory Compliance Officer History LMP: 03/06/2024 (Approximate), Having periods Age at Menarche: Age at First : Age at Menopause: Regulatory Compliance Officer History Comments: Sexual Activity: Yes; Male Contraception: Tubal Ligation PAST MEDICAL HISTORY Diagnosis Date NEGATIVE MEDICAL HISTORY PAST SURGICAL HISTORY Procedure Laterality Date DELIVERY ONLY 07/18/07,05/03/2009 for previa LIG/TRNSXJ FLP TUBE ABDL/VAG APPR UNI/BI 1994 Tubal ligation LIG/TRNSXJ FLP TUBE ABDL/VAG APPR UNI/BI 2008 Tubal ligation PAST SURGICAL HISTORY OF 09/08 TUBAL REVERSAL PAST SURGICAL HISTORY OF Left 03/2015 shoulder surgery FAMILY HISTORY Problem Relation Age of Onset other (LIVER DISEASE) Mother Hypertension Father Diabetes Father Heart Father SOCIAL HISTORY[1] Current Outpatient Medications Medication Sig estradiol (ESTRING) 2 mg (7.5 mcg /24 hour) vaginal ring Use 2 mg vaginally every 3 months. follow package directions flibanserin (ADDYI) 100 mg tab Take 1 tablet by mouth once daily. estradiol (ESTRACE) 1 mg tablet Take 1 tablet by mouth once daily. progesterone micronized (PROMETRIUM) 100 mg capsule Take 1 capsule by mouth daily at bedtime. No current facility-administered medications for this visit. ALLERGIES No Known Allergies REVIEW OF SYSTEMS: Objective PHYSICAL EXAM: GENERAL: pleasant, {female in no apparent distress A&O x 3. Assessment & Plan ASSESSMENT AND PLAN: 1. Sexual dysfunction (R37) - No contraindications identified with current hormone therapy (estradiol and progesterone) or vaginal estrogen ring. - Start Addyi 100 mg PO QHS; prescription sent for 30 tablets with refills. - Discussed high cost and lack of insurance coverage; advised patient to explore sign poster discount programs and coupons. - Reviewed prior patient experiences with Addyi, noting effectiveness and minimal issues. - Patient expressed understanding of treatment plan and will assess medication affordability and efficacy over the next 30 days. Tarsha Tyler APRN.CNP Medical Decision Making: Problems: Low: Acute, uncomplicated illness or injury Risk: Moderate: Drug management Medical Decision Making Level: 3 - Low [1] Social History Tobacco Use Smoking status: Former Current packs/day: 0.00 Average packs/day: 0.5 packs/day for 14.0 years (7.0 ttl pk-yrs) Types: Cigarettes Start date: 06/02/1994 Quit date: 06/02/2008 Years since quittin.9 Smokeless tobacco: Never Vaping Use Vaping status: Former Substance Use Topics Alcohol use: Yes Comment: social,BUT NOT WHILE Drug use: No documented in this encounter [facility] 01-12-2025 Telephone encounter Note Refill request received via Bringrr. Candy Martell RN [facility] 01-12-2025 Miscellaneous Notes Refill request received via Bringrr. Candy Martell RN documented in this encounter [facility] 08-19-2024 Note HNO ID: [id number] Author: YOLI BAINS MD Service: ? Author Type: Physician Type: Progress Notes Filed: 08/19/2024 23:44 Note Text: The patient presents for requested ultrasound. Full report available in the Imaging tab in [employer]. Yoli Bains MD [facility] 08-19-2024 History of Presen t illness Narrative The patient presents for requested ultrasound. Full report available in the Imaging tab in [employer]. Yoli Bains MD documented in this encounter [facility] 08-17-2024 Telephone encounter Note Called patient LVM to call back to schedule Pelvic US [facility] 08-17-2024 Miscellaneous Notes Called patient LVM to call back to schedule Pelvic US Please call to assist with scheduling US. Tarsha Lizama APRN.CNP documented in this encounter [facility] 08-17-2024 Telephone encounter Note Please call to assist with scheduling US. Tarsha Lizama APRN.CNP [facility] 08-17-2024 Note HNO ID: [id number] Author: TARSHA TYLER APRN.CNP Service: ? Author Type: Nurse Practitioner Type: Progress Notes Filed: 08/17/2024 13:06 Note Text: VIRTUAL VISIT PROGRESS NOTE This is a virtual visit using Senior[employer] Video Visit. It required patient-provider interaction for the medical decision making as documented below. I have communicated my name and active licensure. The patient's identity and physical location were verified at the time of this visit. Either the patient or their legal loss prevention representative has been informed of the risks and benefits of -- and alternatives to -- treatment through a remote evaluation and consents to proceed with the evaluation remotely. Sherrie Saxena is a 54 year old female seen for HRT follow up. After about 1 week of taking the HRT she started with heavy, bright red bleeding for about 1 week. Since then she is having a dark discharge daily. She stop the HRT about 6 days ago and the discharge is started to slow down. Her hot flashes were gone, but now are returning since stopping the meds. HISTORY REVIEWED (electronic chart updated): PAST MEDICAL HISTORY Diagnosis Date NEGATIVE MEDICAL HISTORY PAST SURGICAL HISTORY Procedure Laterality Date DELIVERY ONLY 07/18/07,05/03/2009 for previa LIG/TRNSXJ FLP TUBE ABDL/VAG APPR UNI/BI 1994 Tubal ligation LIG/TRNSXJ FLP TUBE ABDL/VAG APPR UNI/BI 2008 Tubal ligation PAST SURGICAL HISTORY OF 09/08 TUBAL REVERSAL PAST SURGICAL HISTORY OF Left 03/2015 shoulder surgery FAMILY HISTORY Problem Relation Age of Onset other (LIVER DISEASE) Mother Hypertension Father Diabetes Father Heart Father Social History Tobacco Use Smoking status: Former Current packs/day: 0.00 Average packs/day: 0.5 packs/day for 14.0 years (7.0 ttl pk-yrs) Types: Cigarettes Start date: 06/02/1994 Quit date: 06/02/2008 Years since quittin.2 Smokeless tobacco: Never Vaping Use Vaping status: Former Substance Use Topics Alcohol use: Yes Comment: social,BUT NOT WHILE Drug use: No Current Outpatient Medications Medication Sig estradiol (ESTRACE) 1 mg tablet Take 1 tablet by mouth once daily. progesterone micronized (PROMETRIUM) 100 mg capsule Take 1 capsule by mouth daily at bedtime. No current facility-administered medications for this visit. ALLERGIES No Known Allergies REVIEW OF SYSTEMS: As noted in HPI PHYSICAL EXAMINATION: VIDEO EXAM: (if completed, performed via video enabled technology) No exam performed ASSESSMENT/PLAN: 1. Menopausal symptoms - ICD9: 627.2, ICD10: N95.1 (primary diagnosis) HRT stopped 2. Abnormal uterine bleeding (AUB) - ICD9: 626.9, ICD10: N93.9 Will notify patient of test results. - PELVIC US WHI Tarsha Tyler APRN.TARA Mercer spent a total of 20 minutes on the date of the service which included preparing to see the patient, [id number] patient care, completing clinical documentation, obtaining and/or reviewing separately obtained history, counseling and educating the patient/family/caregiver, and ordering medications, tests, or procedures Tarsha Tyler APRN.CNP [facility] 08-17-2024 History of Presen t illness Narrative VIRTUAL VISIT PROGRESS NOTE This is a virtual visit using [employer] Video Visit. It required patient-provider interaction for the medical decision making as documented below. I have communicated my name and active licensure. The patient's identity and physical location were verified at the time of this visit. Either the patient or their legal loss prevention representative has been informed of the risks and benefits of -- and alternatives to -- treatment through a remote evaluation and consents to proceed with the evaluation remotely. Sherrie Saxena is a 54 year old female seen for HRT follow up. After about 1 week of taking the HRT she started with heavy, bright red bleeding for about 1 week. Since then she is having a dark discharge daily. She stop the HRT about 6 days ago and the discharge is started to slow down. Her hot flashes were gone, but now are returning since stopping the meds. HISTORY REVIEWED (electronic chart updated): PAST MEDICAL HISTORY Diagnosis Date NEGATIVE MEDICAL HISTORY PAST SURGICAL HISTORY Procedure Laterality Date DELIVERY ONLY 07/18/07,05/03/2009 for previa LIG/TRNSXJ FLP TUBE ABDL/VAG APPR UNI/BI 1994 Tubal ligation LIG/TRNSXJ FLP TUBE ABDL/VAG APPR UNI/BI 2008 Tubal ligation PAST SURGICAL HISTORY OF 09/08 TUBAL REVERSAL PAST SURGICAL HISTORY OF Left 03/2015 shoulder surgery FAMILY HISTORY Problem Relation Age of Onset other (LIVER DISEASE) Mother Hypertension Father Diabetes Father Heart Father Social History Tobacco Use Smoking status: Former Current packs/day: 0.00 Average packs/day: 0.5 packs/day for 14.0 years (7.0 ttl pk-yrs) Types: Cigarettes Start date: 06/02/1994 Quit date: 06/02/2008 Years since quittin.2 Smokeless tobacco: Never Vaping Use Vaping status: Former Substance Use Topics Alcohol use: Yes Comment: social,BUT NOT WHILE Drug use: No Current Outpatient Medications Medication Sig estradiol (ESTRACE) 1 mg tablet Take 1 tablet by mouth once daily. progesterone micronized (PROMETRIUM) 100 mg capsule Take 1 capsule by mouth daily at bedtime. No current facility-administered medications for this visit. ALLERGIES No Known Allergies REVIEW OF SYSTEMS: As noted in HPI PHYSICAL EXAMINATION: VIDEO EXAM: (if completed, performed via video enabled technology) No exam performed ASSESSMENT/PLAN: 1. Menopausal symptoms - ICD9: 627.2, ICD10: N95.1 (primary diagnosis) HRT stopped 2. Abnormal uterine bleeding (AUB) - ICD9: 626.9, ICD10: N93.9 Will notify patient of test results. - PELVIC US WHI Tarsha Tyler APRN.CNP I spent a total of 20 minutes on the date of the service which included preparing to see the patient, [id number] patient care, completing clinical documentation, obtaining and/or reviewing separately obtained history, counseling and educating the patient/family/caregiver, and ordering medications, tests, or procedures Tarsha Tyler APRN.TARA documented in this encounter [facility] 07-17-2024 Telephone encounter Note Patient notified. Jesica Jackson RN [facility] 07-17-2024 Miscellaneous Notes Patient notified. Jesica Jackson RN Ok to stay on Macrobid and to follow up if symptoms persist Valerie Reeder APRN.TARA Patient was seen by Hemalatha Tyler on 07/13/2024 and was given Rx for Macrobid for UTI on 07/15/24. Patient has taken 1 dose of Macrobid and feels ok but is questioning if Macrobid is right antibiotic to take since she took Macrobid for UTI symptoms on 06/26/24 and still had symptoms so she went to [facility] and repeated urine culture on 07/05/2024 and was prescribed Bactrim. Urine Culture on 07-07-2024 [facility] Presumptive E. coli [place] Count 50,000-80,000 Presumptive E. coli: REACTION Please advise if patient should finish current Rx for Macrobid or if a different antibiotic is needed based on current urine culture collected at office on 07/13. documented in this encounter [facility] 07-17-2024 Telephone encounter Note Ok to stay on Macrobid and to follow up if symptoms persist Valerie Reeder APRN.TARA [facility] Work Phone: 07-17-2024 Telephone encounter Note Patient was seen by Hemalatha Tyler on 07/13/2024 and was given Rx for Macrobid for UTI on 07/15/24. Patient has taken 1 dose of Macrobid and feels ok but is questioning if Macrobid is right antibiotic to take since she took Macrobid for UTI symptoms on 06/26/24 and still had symptoms so she went to [facility] and repeated urine culture on 07/05/2024 and was prescribed Bactrim. Urine Culture on 07-07-2024 [facility] Presumptive E. coli [place] Count 50,000-80,000 Presumptive E. coli: REACTION Please advise if patient should finish current Rx for Macrobid or if a different antibiotic is needed based on current urine culture collected at office on 07/13. [facility] 07-15-2024 Telephone encounter Note Pt notified and voiced understanding. Sergey Strickland RN [facility] 07-15-2024 Miscellaneous Notes Pt notified and voiced understanding. Sregey Strickland RN Please let the patient know that I will send another round of Macrobid for her since there is still a slight bladder infection going on. Tarsha Tyler APRN.CNP documented in this encounter [facility] 07-15-2024 Telephone encounter Note Please let the patient know that I will send another round of Macrobid for her since there is still a slight bladder infection going on. Tarsha Tyler APRN.CNP [facility] 07-13-2024 Note HNO ID: [id number] Author: TARSHA TYLER APRN.CNP Service: ? Author Type: Nurse Practitioner Type: Progress Notes Filed: 07/13/2024 13:32 Note Text: Patient declined post hole digger. Sherrie is a 54 year old who presents for an annual gynecologic exam with complaints, reported UTI x2 ATB completed x1 wk prior, denied vaginal discharge. Postmenopausal: menses irregular LMP March 2024 x3 day light flow. HRT use: No. Last Pap: 07/22/2023 normal HPV: 07/16/2023 negative History of abnormal pap: No Last mammogram: 2022 normal History of abnormal mammogram: No Sexually active: Yes Pain with intercourse: Yes Postcoital bleeding: No Hot flashes: Yes Night sweats: Yes OB History T4 L4 SAB0 IAB1 Ectopic0 Multiple0 Live Births5 Regulatory Compliance Officer History LMP: 06/10/2023 (Approximate), Having periods Age at Menarche: Age at First : Age at Menopause: Regulatory Compliance Officer History Comments: Sexual Activity: Yes; Male Contraception: Tubal Ligation PAST MEDICAL HISTORY Diagnosis Date NEGATIVE MEDICAL HISTORY PAST SURGICAL HISTORY Procedure Laterality Date DELIVERY ONLY 07/18/07,05/03/2009 for previa LIG/TRNSXJ FLP TUBE ABDL/VAG APPR UNI/BI 1994 Tubal ligation LIG/TRNSXJ FLP TUBE ABDL/VAG APPR UNI/BI 2008 Tubal ligation PAST SURGICAL HISTORY OF 09/08 TUBAL REVERSAL PAST SURGICAL HISTORY OF Left 03/2015 shoulder surgery FAMILY HISTORY Problem Relation Age of Onset other (LIVER DISEASE) Mother Hypertension Father Diabetes Father Heart Father SOCIAL HISTORY Social History Tobacco Use Smoking status: Former Current packs/day: 0.00 Average packs/day: 0.5 packs/day for 14.0 years (7.0 ttl pk-yrs) Types: Cigarettes Start date: 06/02/1994 Quit date: 06/02/2008 Years since quittin.1 Smokeless tobacco: Never Vaping Use Vaping status: Former Substance Use Topics Alcohol use: Yes Comment: social,BUT NOT WHILE Drug use: No REVIEW OF SYSTEMS Abdomen: No abdominal pain, nausea, vomiting, diarrhea, or constipation. No bloating, early satiety, indigestion, or increased flatulence. Bladder: No dysuria, gross hematuria, urinary frequency, urinary urgency, or incontinence and irritation Breast: No breast lumps, nipple d/c, overlying skin changes, redness or skin retraction Allergies and current medication updated:Yes SENSITIVE EXAM: The sensitive examination was discussed with the Patient or Patient's Authorized Supervisor Waterworks. As applicable, any other physician, advance practice provider, medical student, or other health professional student that will be observing or involved in the sensitive examination for educational or training purposes was discussed with the Patient or Authorized Supervisor Waterworks. The Patient or Authorized Supervisor Waterworks has agreed to proceed with the sensitive examination. (Sensitive examination includes inspection and/or palpation of the breasts, pelvis, prostate and anorectal regions). EXAM: LMP 06/10/2023 GENERAL: pleasant, female in no apparent distress [...] external genitalia normal, normal Bartholin's glands, urethra, Faywood's glands, no vulvar lesions, no cervical lesions, physiologic discharge present, normal appearing perineal body and perianal region BIMANUAL: uterus normal size, shape and consistency, no adnexal masses, and non-tender RECTOVAGINAL: deferred. NEURO: alert and oriented x3,exam grossly non-focal EXTREMITIES: normal ASSESSMENT/PLAN: 1) Health maintenance: Pap/HPV up to date. Mammogram ordered Nutrition, exercise and routine health maintenance exams reviewed. Calcium/Vitamin D supplementation information provided. Colon cancer screening: up to date with screening Cologuard 2022 2) Follow up one year or sooner as needed 3) Estrace 1 mg and Prometrium ordered- follow up in 5 wks 4) urine culture Tarsha Tyler APRN.CNP [facility] 07-13-2024 History of Presen t illness Narrative Patient declined post hole digger. Sherrie is a 54 year old who presents for an annual gynecologic exam with complaints, reported UTI x2 ATB completed x1 wk prior, denied vaginal discharge. Postmenopausal: menses irregular LMP March 2024 x3 day light flow. HRT use: No. Last Pap: 07/22/2023 normal HPV: 07/16/2023 negative History of abnormal pap: No Last mammogram: 2022 normal History of abnormal mammogram: No Sexually active: Yes Pain with intercourse: Yes Postcoital bleeding: No Hot flashes: Yes Night sweats: Yes OB History T4 L4 SAB0 IAB1 Ectopic0 Multiple0 Live Births5 Regulatory Compliance Officer History LMP: 06/10/2023 (Approximate), Having periods Age at Menarche: Age at First : Age at Menopause: Regulatory Compliance Officer History Comments: Sexual Activity: Yes; Male Contraception: Tubal Ligation PAST MEDICAL HISTORY Diagnosis Date NEGATIVE MEDICAL HISTORY PAST SURGICAL HISTORY Procedure Laterality Date DELIVERY ONLY 07/18/07,05/03/2009 for previa LIG/TRNSXJ FLP TUBE ABDL/VAG APPR UNI/BI 1994 Tubal ligation LIG/TRNSXJ FLP TUBE ABDL/VAG APPR UNI/BI 2008 Tubal ligation PAST SURGICAL HISTORY OF 09/08 TUBAL REVERSAL PAST SURGICAL HISTORY OF Left 03/2015 shoulder surgery FAMILY HISTORY Problem Relation Age of Onset other (LIVER DISEASE) Mother Hypertension Father Diabetes Father Heart Father SOCIAL HISTORY Social History Tobacco Use Smoking status: Former Current packs/day: 0.00 Average packs/day: 0.5 packs/day for 14.0 years (7.0 ttl pk-yrs) Types: Cigarettes Start date: 06/02/1994 Quit date: 06/02/2008 Years since quittin.1 Smokeless tobacco: Never Vaping Use Vaping status: Former Substance Use Topics Alcohol use: Yes Comment: social,BUT NOT WHILE Drug use: No REVIEW OF SYSTEMS Abdomen: No abdominal pain, nausea, vomiting, diarrhea, or constipation. No bloating, early satiety, indigestion, or increased flatulence. Bladder: No dysuria, gross hematuria, urinary frequency, urinary urgency, or incontinence and irritation Breast: No breast lumps, nipple d/c, overlying skin changes, redness or skin retraction Allergies and current medication updated:Yes SENSITIVE EXAM: The sensitive examination was discussed with the Patient or Patient's Authorized Supervisor Waterworks. As applicable, any other physician, advance practice provider, medical student, or other health professional student that will be observing or involved in the sensitive examination for educational or training purposes was discussed with the Patient or Authorized Supervisor Waterworks. The Patient or Authorized Supervisor Waterworks has agreed to proceed with the sensitive examination. (Sensitive examination includes inspection and/or palpation of the breasts, pelvis, prostate and anorectal regions). EXAM: LMP 06/10/2023 GENERAL: pleasant, female in no apparent distress [...] external genitalia normal, normal Bartholin's glands, urethra, Faywood's glands, no vulvar lesions, no cervical lesions, physiologic discharge present, normal appearing perineal body and perianal region BIMANUAL: uterus normal size, shape and consistency, no adnexal masses, and non-tender RECTOVAGINAL: deferred. NEURO: alert and oriented x3,exam grossly non-focal EXTREMITIES: normal ASSESSMENT/PLAN: 1) Health maintenance: Pap/HPV up to date. Mammogram ordered Nutrition, exercise and routine health maintenance exams reviewed. Calcium/Vitamin D supplementation information provided. Colon cancer screening: up to date with screening Cologuard 2022 2) Follow up one year or sooner as needed 3) Estrace 1 mg and Prometrium ordered- follow up in 5 wks 4) urine culture Tarsha Tyler APRN.CLIMATE CHANGE RISK ASSESSOR documented in this encounter [facility] 07-30-2023 Miscellaneous Notes July 30, 2023 PID: [id number] Sherrie Saxena [address] [place] [address] Dear Ms. Saxena, We are pleased to inform you that [...] report will be kept on file at [facility] as part of your permanent medical record and are available for your continuing care. Thank you for allowing us to help in meeting your health care needs. Sincerely, Dr. Isaacs Interpreting Radiologist [facility] (Normal over 40) documented in this encounter [facility] 07-11-2023 History of Presen t illness Narrative Navy Material Inspector offered: Patient declines. Sherrie is a 53 [...] L4 SAB0 IAB1 Ectopic0 Multiple0 Live Births5 Regulatory Compliance Officer History LMP: 05/25/2021, Having periods Age at Menarche: Age at First : Age at Menopause: Regulatory Compliance Officer History Comments: Sexual Activity: Yes; Male Contraception: [...] external genitalia normal, normal Bartholin's glands, urethra, Faywood's glands, no vulvar lesions, no cervical lesions, [...] one year or sooner as needed Tarsha Tyler APRN.CNP documented in this encounter [facility] 09-30-2008 History of Past i llness Narrative Problem Noted Date Diagnosed Date Resolved Date Supervision of other normal 09/30/2008 05/17/2009 Previous delivery, antepartum condition or complication 09/30/2008 05/17/2009 Elderly multigravida with an tepartum condition or complication 09/30/2008 05/17/2009 Unspecified high-risk 11/20/2006 07/21/2007 Elderly multigravida with an tepartum condition or complication 11/20/2006 07/21/2007 Supervision of other normal 11/14/2006 11/20/2006 documented as of this encounter (statuses as of 07/11/2023) [facility]01-29-2009 History of Past illness Narrative* Problem Noted Date Diagnosed Date Resolved Date Supervision of other normal 09/30/2008 05/17/2009 Previous delivery, antepartum condition or complication 09/30/2008 05/17/2009 Elderly multigravida with an tepartum condition or complication 09/30/2008 05/17/2009 Unspecified high-risk 11/20/2006 07/21/2007 Elderly multigravida with an tepartum condition or complication 11/20/2006 07/21/2007 Supervision of other normal 11/14/2006 11/20/2006 documented as of this encounter (statuses as of 08/01/2023) [facility] Diagnosis Encounter for gynecological examination (general) (routine) without abnormal findings- Primary Encounter for screening for human papillomavirus (HPV) Special screening examination for human papillomavirus (HPV) Encounter for screening mammogram for breast cancer Screening for malignant neoplasm of cervix Screening for malignant neoplasm of the cervix documented in this encounter [facility] noteNo assessment information availableWLakeHealth [facility] Work Phone: Evaluation note* Diagnosis Encounter for gynecological examination (general) (routine) without abnormal findings- Primary Encounter for screening mammogram for breast cancer Bladder irritation Other specified disorders of bladder Menopausal symptoms Symptomatic menopausal or female climacteric states documented [facility] this [facility]* Diagnosis Menopausal symptoms- Primary Symptomatic menopausal or female climacteric states Abnormal uterine bleeding (AUB) documented in this encounter [facility] note* Diagnosis Abnormal uterine bleeding (AUB)- Primary Intramural uterine fibroid Arcuate uterus documented [facility]* Diagnosis Sexual dysfunction- Primary Psychosexual dysfunction, unspecified documented in this encounter [facility] for referral (narrative)* Diagnostic Procedure Only (Routine) - Authorized Specialty Diagnoses / Procedures Referred By Brit muhammad Referred To Contact [facility] Diagnoses Encounter for screening mammogram for breast cancer Procedures MARY ANN SCREENING SCREENING MAMMOGRAPHY BI 2-VIEW BREAST INC Tarsha Sandy APRN.CNP [address] [place] [address] Imaging [address] [address] Referral ID Status Reason Start Date Expiration Date Visits Requested Visits Authorized [id number] Authorized Auto-Generat ed Referral 07/11/2023 08/09/2024 1 [facility] Diagnostic Procedure Only (Routine) - Authorized Specialty Diagnoses / Procedures Referred By Brit muhammad Referred To Contact [facility] Diagnoses Encounter for gynecological examination (general) (routine) without abnormal findings Encounter for screening mammogram for breast cancer Procedures MARY ANN SCREENING W AV SCREENING DIGITAL BREAST TOMOSYNTHESIS BI SCREENING MAMMOGRAPHY BI 2-VIEW BREAST INC Tarsha Sandy APRN.CNP [address] [place] [address] [facility] [address] [place] [address] Referral ID Status Reason Start Date Expiration Date Visits Requested Visits Authorized [id number] Authorized Auto-Generat ed Referral 08/12/2025 1 1 [facility]IO [facility] (n[facility]ative)* Diagnostic Procedure Only (Routine) - Authorized Specialty Diagnoses / Procedures Referred By Brit muhammad Referred To Contact [facility] Diagnoses Abnormal uterine bleeding (AUB) Procedures PELVIC US WHI US PELVIC NONOBSTETRIC REAL-TIME IMAGE COMPLETE Tarsha Tyler APRN.CNP [address] [place] [address] [facility] [address] [place] [address] Referral ID Status Reason Start Date Expiration Date Visits Requested Visits Authorized [id number] Authorized Auto-Generat ed Referral 08/17/[address] [facility] for visit Narrative* Diagnostic Procedure Only (Routine) - Closed Specialty Diagnoses / Procedures Referred By Contac t Referred To Contact [facility] Diagnoses Abnormal uterine bleeding (AUB) Procedures PELVIC US WHI US PELVIC NONOBSTETRIC REAL-TIME IMAGE COMPLETE Tarsha Tyler APRN.CNP [address] [place] [address] [facility] [address] [place] [address] Referral ID Status Reason Start Date Expiration Date V isits Requested Visits Authorized [id number] Closed Auto-Generate d Referral 08/17/2024 08/17/2025 1 1 [facility] Chief Complaint and Reason for Visit Chief Complaint EORDER SCREEN Family History No Family History Records Found Relationship Condition Age at Onset Recorded Date/T nicho Not Specified Disorder of liver Unknown Cardiac disease Unknown Summary Purpose Advance Directives No Advanced Directives Records FoundNo Advanced Directives Records Found Additional Source Comments Source Comments (unrecognize d section and content) In the event this informatio n is protected by the Federal Confidentiality of Alcohol and Drug Abuse Patient Records regulations: The Federal rules restrict any use of the information to criminally investigate or prosecute any alcohol or drug abuse patient.[facility] the event this information is protected by the Federal Confidentiality of Alcohol and Drug Abuse Patient Records regulations: The Federal rules restrict any use of the information to criminally investigate or prosecute any alcohol or drug abuse patient.[facility] the event this information is protected by the Federal Confidentiality of Alcohol and Drug Abuse Patient Records regulations: The Federal rules restrict any use of the information to criminally investigate or prosecute any alcohol or drug abuse patient.[facility] North[facility] the event this information is protected by the Federal Confidentiality of Alcohol and Drug Abuse Patient Records regulations: The Federal rules restrict any use of the information to criminally investigate or prosecute any alcohol or drug abuse patient.[facility] the event this information is protected by the Federal Confidentiality of Alcohol and Drug Abuse Patient Records regulations: The Federal rules restrict any use of the information to criminally investigate or prosecute any alcohol or drug abuse patient.[facility] North[facility] the event this information is protected by the Federal Confidentiality of Alcohol and Drug Abuse Patient Records regulations: The Federal rules restrict any use of the information to criminally investigate or prosecute any alcohol or drug abuse patient.[facility] North[facility] the event this information is protected by the Federal Confidentiality of Alcohol and Drug Abuse Patient Records regulations: The Federal rules restrict any use of the information to criminally investigate or prosecute any alcohol or drug abuse patient.[facility] North[facility] the event this information is protected by the Federal Confidentiality of Alcohol and Drug Abuse Patient Records regulations: The Federal rules restrict any use of the information to criminally investigate or prosecute any alcohol or drug abuse patient.[facility] North[facility] the event this information is protected by the Federal Confidentiality of Alcohol and Drug Abuse Patient Records regulations: The Federal rules restrict any use of the information to criminally investigate or prosecute any alcohol or drug abuse patient.[facility] North[facility] the event this information is protected by the Federal Confidentiality of Alcohol and Drug Abuse Patient Records regulations: The Federal rules restrict any use of the information to criminally investigate or prosecute any alcohol or drug abuse patient.[facility] Reason for Visit (unrecogniz ed section and content) Reason Comments Annual TECHNICAL SERVICES CONSULTANT exam Reason Comments Well Woman Reason Comments Results Reason Comments Medication Question Reason Comments Medication Follow-up Reason Comments Appointment Reason Onset Date Comments Refill Request 01/12/2025 Reason Comments Decreased Libido Care Teams (unrecognized sec tion and content) Indoor Plant Technician Relationship Specialty Start Date End Date Shar Tovar MD PCP - General Family Medicine 10/07/12 Indoor Plant Technician Relationship Specialty Start Date End Date Shar Tovar MD PCP - General Family Medicine 10/07/12 Team Status: Active Member Role Status Dates Dr. Shar Tovar MD Family Provider Active Dr. Titus Bass MD Primary Care Provider Active Team Status: Inactive Member Role Status Dates Dr. Titus Bass MD Primary Care Pr ovider, Attending Provider, Referring Provider Active Indoor Plant Technician Relationship Specialty Start Date End Date Shar Tovar MD PCP - General Family Medicine 10/07/12 Titus Bass MD [address] [place] [address] Family Medicine 09/24/23 Indoor Plant Technician Relationship Specialty Start Date End Date Shar Tovar MD PCP - General Family Medicine 10/07/12 Titus Bass MD [address] [place] [address] Family Medicine 09/24/23 [employer] Relationship Specialty Start Date End Date Shar Tovar MD PCP - General Family Medicine 10/07/12 Titus Bass MD [address] [place] [address] Family Medicine 09/24/23 [employer] Technician Relationship Specialty Start Date End Date Shar Tovar MD PCP - General Family Medicine 10/07/12 Titus Bass MD [address] [place] [address] Family Medicine 09/24/23 [employer] Plant Technician Relationship Specialty Start Date End Date Shar Tovar MD PCP - General Family Medicine 10/07/12 Titus Bass MD [address] [place] [address] Family Medicine 09/24/23 [employer] Technician Relationship Specialty Start Date End Date Shar Tovar MD PCP - General Family Medicine 10/07/12 Titus Bass MD [address] [facility] [address] [place] [address] [facility] 09/24/23 Ind[employer] Plant Technician Relationship Specialty Start Date End Date Shar Tovar MD PCP - General Family Medicine 10/07/12 Titus Bass MD [address] [place] [address] [facility] 09/24/23 Goals (unrecognized section and content) Goals may be documented in a n alternate section INFORMATION SOURCE (unrecogn ized section and content) DATE CREATED AUTHOR 10/04/2024 [facility] DATE CREATED AUTHOR 'S VLADIMIR ARTEAGA 05/23/2025 [facility] FOR RECORDS PERTAINING TO PATIENTS WHO ARE [...] BE BASED ON THE PRIMARY CLINICAL RECORDS. [employer] provides no warranty or guarantee of the accuracy or completeness of information in this document.
[2025-08-25 10:39] LABS: Cholesterol 199 mg/dL (<=200); Low Density Lipoprotein Calc. 108 mg/dL; Triglycerides 86 mg/dL; Very Low Density Lipoprotein 17 mg/dL (5-40); cholesterol:hdl ratio screen 2.64
== END | disposition home or self-care (01) ==
LOC: MTLAB 09:25
PROVIDERS: PCP Family Medicine
DX: Z13.1 Encounter for screening for diabetes mellitus (principal); Z13.220 Encounter for screening for lipoid disorders
CPT/HCPCS: 36415; 80061; 83036